=== PATIENT | female | born 1970 | race Caucasian/White ===

== ENCOUNTER 2023-10-09 12:45 | Outpatient (RCR) | payer BC, SELFPAY | END 2023-10-09 23:59 | disposition home or self-care (01) | LOC: PURB 12:45 | PROVIDERS: ATTENDING PHYSICIAN Internal Medicine Critical Care Medicine; FAMILY PHYSICIAN Family Medicine | DX: J44.9 Chronic obstructive pulmonary disease, unspecified (principal) | CPT/HCPCS: G0237 ==

== ENCOUNTER 2023-11-06 16:30 | Outpatient (RCR) | payer BC, SELFPAY | END 2023-11-06 23:59 | disposition home or self-care (01) | LOC: PURB 16:30 | PROVIDERS: ATTENDING PHYSICIAN Internal Medicine Critical Care Medicine; FAMILY PHYSICIAN Family Medicine | DX: J44.9 Chronic obstructive pulmonary disease, unspecified (principal) | CPT/HCPCS: 94625 ==

== ENCOUNTER 2023-11-22 16:30 | Outpatient (RCR) | payer BC, SELFPAY | END 2023-11-22 23:59 | disposition home or self-care (01) | LOC: PURB 16:30 | PROVIDERS: ATTENDING PHYSICIAN Internal Medicine Critical Care Medicine; FAMILY PHYSICIAN Family Medicine | DX: J44.9 Chronic obstructive pulmonary disease, unspecified (principal) | CPT/HCPCS: 94625 ==

== ENCOUNTER → 2023-12-24 06:54 | Outpatient (REF) | payer BC, SELFPAY | LOC: RAD 06:54 | PROVIDERS: ATTENDING PHYSICIAN Internal Medicine Critical Care Medicine; FAMILY PHYSICIAN Family Medicine | DX: J21.9 Acute bronchiolitis, unspecified (principal) | CPT/HCPCS: 71250 ==

== ENCOUNTER → 2023-12-28 06:41 | Outpatient (REF) | payer BC, SELFPAY | LOC: HWWDC 06:41 | PROVIDERS: ATTENDING PHYSICIAN Physician Assistant Medical | DX: Z12.31 Encounter for screening mammogram for malignant neoplasm of breast (principal) | CPT/HCPCS: 77063; 77067 ==

== ENCOUNTER 2024-03-28 08:51 | Inpatient (IN) | payer BC, SELFPAY ==
[2024-03-27] VITALS (10 sets, daily range): BP systolic 109–132; BP diastolic 62–84; BMI 23.2; BMI 23.3
--- NOTE | 2024-03-27 01:57 | ED.GENMED ---
History of Present Illness
General
Chief Complaint: Breathing Problem
Time Seen by Provider: 03/27/24 01:57
History of Present Illness
History of Present Illness:
HPI: Patient presents due to shortness of breath and was concerned because of low sats on room air. SOB onset 3d ago. Cannot sleep. Some pleuritic low/mid back pain on the right side. (+) nonproductive cough. She has never had blood clots in
her lung. Currently at rest, she does not have any shortness of breath and did have breathing treatment earlier approximately 2 and half hours ago.
EXAM:
GENERAL: Well appearing in no distress
HEENT: Moist oral mucosa
CARDIOVASCULAR: No murmurs, tachycardic heart rate, regular rhythm, No chest wall tenderness
PULMONARY: No respiratory distress, breath sounds are somewhat decreased with some rales at the bases which are faint
ABDOMEN: Soft with no peritoneal signs, no tenderness
NEUROLOGIC: Excellent strength all extremities, no coordination deficits
PSYCHIATRIC: Appropriate mental status, normal insight and judgement
EXTREMITIES: Nontender, no edema, moves all extremities equally
SKIN: No rash, no lesions
TIME OF INITIAL ENCOUNTER: 2 AM
NUMBER AND COMPLEXITY OF PROBLEMS ADDRESSED AT THE ENCOUNTER
� Chronic conditions affecting care: Asthma, COPD, former smoker, has had pneumonia, has had COVID in 2022
� Acute Exacerbation and/or Progression of Chronic Illness: This is an acute problem
� Differential Diagnosis includes: Viral syndrome, COPD exacerbation, asthma exacerbation, PE, pneumonia
AMOUNT AND/OR COMPLEXITY OF DATA TO BE REVIEWED AND ANALYZED
� I performed an independent evaluation of and my interpretation is:
EKG: Sinus 106, rightward axis deviation, nonspecific ST abnormality
CT:
X-rays: Chest x-ray shows no definite opacification
Laboratory Studies: White count 17.6, troponin and BNP unremarkable, COVID flu negative, D-dimer 0.31
Other:
� Review of other/old records: The patient was admitted earlier this year with COPD exacerbation
� Clinical information was obtained by an independent historian: None needed
� Prescriptions/Medications Considered but not given: Consider DuoNebs over the patient currently denies any shortness of breath at rest
� Further testing considered but not performed:
RISK OF COMPLICATIONS AND/OR MORBIDITY OR MORTALITY OF PATIENT MANAGEMENT
� Social determinants of health affecting care: Lives at home
� Discussion with other providers: Dr. Mccurdy for admission at 4:05 AM
� Escalation of care including admission/observation vs risk of discharge considered: The patient states she has both COPD and asthma. Leukocytosis is noted but she has not been on any steroids recently. She currently does not
have any shortness of breath at rest. Will try IV steroids. The nurse tells me that as the patient walked in the emergency department she became short of breath and sats were down to 83% with good waveform. Her D-dimer is reassuring.
Past History
Past History
ED Past Medical History: Asthma
ED Past Surgical History: Negative Cholecystectomy
Social History
Tobacco: Smoker
Alcohol: Occasional
Drug: None
Personal:
Living: with family
Family History
Family History: Other (non contributory)
Phy Exam
Physical Exam
Physical Exam:
See HPI
Scores
Heart Failure Risk
Heart Failure Risk Score: Not Applicable
Course
Orders/Labs/Results
Orders:
Orders
03/27/24 01:52
CXR2 [CR Chest - 2 Views ] Urgent
Comment:
Reason For Exam: cough and shortness of breath.
03/27/24 02:34
Electrocardiogram (*1) Urgent
Reason for Study: Shortness of Breath
EKG- Treatment ONCE
Test Result ONCE
03/27/24 02:37
MethylPREDNISolone PF [Solu-Medrol Pf] 125 mg IV NOW STA
03/27/24 02:53
Basic Metabolic Panel Urgent
Complete Blood Count/With Diff Urgent
D-Dimer Urgent
HCG, Serum Qualitative Screen Urgent
Magnesium Urgent
NT-proBNP Urgent
Troponin I Urgent
03/27/24 03:07
0.9% Sodium Chloride 1000 ml [Nss] 1,000 ml IV BOLUS
03/27/24 03:36
COVID-19 Antigen Urgent
Source: Nasal Swab
Influenza A+B Rapid Molecular Urgent
MADHAV Source: Nasal Swab
Specimen Description:
03/27/24 03:53
Ipratropium/Albuterol Sulfate [Duoneb] 3 ml INH R NOW ONE
03/27/24 04:28
Admit/Transfer Patient As Directed
Co-Sign Provider:
Level of Care: Observation services
Assign to:: Telemetry
Physician / Group: Kaz
Diagnosis: RAMACHANDRAN
Reason for Telemetry: Arrhythmia
Date to Stop Telemetry: 03/30/24
Time to Stop Telemetry: 11:00
PRN Pain Medication Management As Directed
May give lesser potent ordered pain med per pt: Yes
preference::
Protocol:: Medication orders for pain may be administered in a
manner that supports deferring to patient preference
when the pt is:
- Requesting an ordered lesser potent pain medication.
Least to most potent pain medications are defined
as: acetaminophen < NSAID < tramadol < opioids
(morphine, oxycodone, hydromorphone).
- Requesting a lesser dose of the same medication IF
ORDERED.
- Requesting a less intrusive route of administration
if both routes are prescribed by the provider (PO <
IV).
03/27/24 04:30
Code Status As Directed
Resuscitation Status: Full Code
03/27/24 05:00
Flush (0.9% Sodium Chloride) [Flush (Nss)] See Dose Instructions IV PER PROTOCOL
03/27/24 05:23
Acetaminophen [Tylenol] 650 mg PO Q4HPRN PRN
Albuterol Nebs [Ventolin Nebules] 2.5 mg INH R Q4HPRN PRN
03/27/24 05:23
Activity As Directed
Activity Level: Ambulate
EKG with chest pain [ECG as needed] As Directed
ECG as needed for:: Chest Pain
I/O [Intake/ Output] As Directed
Frequency: Per unit guidelines
Vital Signs As Directed
Frequency: Per unit guidelines
Weight As Directed
Frequency: Daily
Oxygen Therapy [O2 Therapy] [RESP] Routine
Titrate/Wean O2 to maintain O2 sat greater than (%): 94
DX Deep Vein Thrombosis Video Routine
03/27/24 Breakfast
Regular
Basic Metabolic Panel IN AM
Complete Blood Count/No Diff IN AM
03/27/24 08:00
Aspirin Low Dose EC [Aspir Low (Enteric Coated)] 81 mg PO DAILY
Budesonide [Pulmicort] 0.5 mg INH R BID
Ipratropium/Albuterol Sulfate [Duoneb] 3 ml INH R QID
Prednisone [Deltasone] 40 mg PO DAILY
03/27/24 18:00
Enoxaparin Sodium [Lovenox] 40 mg SC QPM
03/30/24 11:00
DC Protocol for Telemetry ONCE
Abnormal Lab Results
03/27/24
02:53
WBC 17.6 H 10^3/uL
(4.8-10.8)
Plt Count 437 H 10^3/uL
(130-400)
Abs Immat Gran (auto) 0.1 H 10^3/uL
(0-0.05)
Absolute Neuts (auto) 13.8 H 10^3/uL
(1.4-6.5)
Absolute Monos (auto) 1.0 H 10^3/uL
(0.1-0.6)
Immature Gran % 0.8 H %
(0-0.5)
Neutrophils % 78.2 H %
(42.2-75.2)
Lymphocytes % 11.2 L %
(20.5-51.1)
Glucose 124 H mg/dl
(70-99)
Calcium 10.4 H mg/dl
(8.4-10.2)
03/27/24 02:53
03/27/24 02:53
Vital Signs
Initial and Last Documented VS:
Initial Vital Signs
Temp Pulse Resp BP Pulse Ox
99.6 F 130 20 132/77 93
03/27/24 01:45 03/27/24 01:45 03/27/24 01:45 03/27/24 01:45 03/27/24 01:45
Last Documented Vital Signs
Temp Pulse Resp BP Pulse Ox
99.6 F 111 16 114/66 93
03/27/24 01:45 03/27/24 05:00 03/27/24 05:00 03/27/24 05:00 03/27/24 04:15
*Critical Care Note
Total Time (30-74mins, 75-104mins- exclusive of procedures): Not Applicable
ED Attending Note
-
Portions of this chart may have been created with voice recognition software.� Occasional wrong word or��sound alike� substitutions may have occurred due to the inherent limitations of voice recognition software.
Discharge Plan
Departure
Patient Disposition: Admit
Date of Disposition: 03/27/24
Time of Disposition: 04:05
Presentation/result/management discussed w/ accepting MD/DO: Hospitalist
Discharge Problem:
COPD with acute exacerbation
Interventions
Interventions:
*Risk Screen - Suicide Last Done: 03/27/24 01:45
*General Assessment Last Done: 03/27/24 01:45
*Neglect/Abuse Screening Last Done: 03/27/24 01:45
ED- Fall Risk Assessment Last Done: 03/27/24 01:45
*ED COVID-19 Vaccine History Last Done: 03/27/24 01:45
ED- Cardiac Assessment Last Done: 03/27/24 03:18
ED- Pulmonary Assessment Last Done: 03/27/24 03:18
[2024-03-27] MEDS: SOLU-MEDROL PF 125 MG IV (03:01)
[2024-03-27 03:05] LABS: % Basophils 0.5 % (0-2); % Eosinophils 3.9 % (0-6); % Immature Granulocytes 0.8 % (0-0.5); % Lymphocytes 11.2 % (20.5-51.1); % Monocytes 5.4 % (1.7-9.3); % Neutrophils 78.2 % (42.2-75.2); Absolute Basophils 0.1 10^3/uL (0-0.2); Absolute Eosinophils 0.7 10^3/uL (0-0.7); Absolute Immature Granulocytes 0.1 10^3/uL (0-0.05); Absolute Neutrophils 13.8 10^3/uL (1.4-6.5); Hematocrit 39.3 % (37.0-47.0); Hemoglobin 13.8 g/dL (12.0-16.0); Mean Corp Hgb Conc. 35.1 g/dL (33.0-37.0); Mean Corpuscular Hgb 29.4 pg (27.0-31.0); Mean Corpuscular Volume 83.6 fL (81.0-99.0); Nucleated Red Blood Cells % 0 %; Platelet Count 437 10^3/uL (130-400); Red Cell Dist. Width 14.3 % (11.5-14.5); White Blood Cell Count 17.6 10^3/uL (4.8-10.8)
[2024-03-27 03:20] LABS: HCG, Serum Qualitative Screen Negative
[2024-03-27 03:23] LABS: Blood Urea Nitrogen 15 mg/dl (7-17); Calcium 10.4 mg/dl (8.4-10.2); Carbon Dioxide 28 mmol/L (22-30); Chloride 99 mmol/L (98-107); Estimated Creatinine Clearance 87 ml/min; Glucose 124 mg/dl (70-99); Potassium 3.8 mmol/L (3.5-5.1); Sodium 140 mmol/L (135-145); eGFR > 60.00
[2024-03-27] MEDS: NSS 1000 IV (03:27)
[2024-03-27 03:44] LABS: D-Dimer 0.31 ug/mlFEU (0.00-0.50)
[2024-03-27 03:57] LABS: COVID-19 Antigen Negative (Negative)
[2024-03-27 03:59] LABS: NT-proBNP 155 pg/ml; Troponin I < 0.012 ng/ml
[2024-03-27] MEDS: DUONEB 3 ML INH ×3 (04:00→11:06)
--- NOTE | 2024-03-27 04:34 | HPS.HSE ---
Family Physician
-
Family Physician:
Chief Complaint
-
SOB
History of Present Illness
Patient is a 53y F with PMH significant for COPD who presents to ED complaining of SOB. Patient states that she has been feeling more SOB since Sunday. She reports dyspnea that occurs with mild exertion and has persisted since that time. She
notes some discomfort in the R flank area as well - worse with deep breathing, coughing, etc. She has a mild , non-productive cough. No fevers or chills. No chest pain or palpitations.
Patient notes that she was hospitalized in February for RLL pneumonia and pleurisy. This was in [place], [place] while she was on vacation. She was discharged on abx and steroids which she completed on 03/04/24.
She had been feeling well since that time - until development of new symptoms on Sunday.
Medical History
Past Medical History
Past Medical History: Reports Other
Additional Past Medical History:
COPD
Anxiety / Depression
Past Surgical History: Reports Other
Additional Past Surgical History:
Cholecystectomy
D&E
Social History
Tobacco: Former Smoker (Patient quit smoking 1 month ago. > 30 pack years total use.)
Alcohol: None
Drug: None
Family History
Family History: Other (Mother: HTN Father: Bladder Cancer GM: Breast Cancer)
Allergies / Home Medications
Allergies reflects when Allergies were last updated in [employer].
Home Medications with original date entered in [employer]
Allergy/Medication List:
Allergies
Allergy/AdvReac Type Severity Reaction Status Date / Time
dextrose Allergy Unknown Verified 03/27/24 01:45
nirmatrelvir [From Paxlovid] Allergy Rash Verified 03/27/24 01:45
ritonavir [From Paxlovid] Allergy Rash Verified 03/27/24 01:45
theophylline Allergy Unknown Verified 03/27/24 01:45
Home Medications
albuterol sulfate 90 mcg/actuation aerosol inhaler 1 puff inhalation Q6H PRN shortness of breath or wheezing #8.5 grams 07/21/23
chlorthalidone 25 mg tablet 25 mg PO DAILY #30 tabs 07/21/23
ipratropium 0.5 mg-albuterol 3 mg (2.5 mg base)/3 mL nebulization soln 3 ml inhalation Q4H PRN SOB #90 mL 07/21/23
aspirin 81 mg tablet,delayed release 81 mg PO DAILY 03/27/24
budesonide 160 mcg-glycopyr 9 mcg-formot 4.8 mcg/actuation HFA inhaler ([employer]) 2 inh inhalation BID 03/27/24
Review of Systems
-
History Source: Patient
A 12 point ROS was completed and negative except as noted: Yes
Constitutional: Reports Fatigue; Denies Fever or Chills
EENT: Denies Sore Throat
Respiratory: Reports Cough and Trouble Breathing; Denies Hemoptysis
Cardiac: Denies Chest Pain or Palpitations
Abdomen/GI: Denies Abdominal Pain, Nausea, Vomiting or Diarrhea
: Reports Flank Pain; Denies Dysuria or Frequency
Musculoskeletal: Denies Edema
Neurological: Denies Dizzy or Headache
Psych: Denies Depression or Anxiety
Physical Exam
Vital Signs
Vital Signs
Temp Pulse Resp BP Pulse Ox
99.6 F 109 20 110/71 92
03/27/24 01:45 03/27/24 03:45 03/27/24 03:45 03/27/24 03:00 03/27/24 03:45
Physical Exam
General: Other (53y F in no acute distress.)
HEENT: Moist mucous membranes, PERRLA and Other (Thick neck, rounded facies.)
Respiratory: Clear; No Wheezes, Rales or Rhonchi
Cardiac: S1/S2 and Regular Rhythm; No Murmur
GI: Soft, Non Tender, Non Distended and Normal Bowel Sounds
Musculoskeletal: No Clubbing and No Edema
Neuro: AO x 3
Laboratory Results
-
03/27/24 02:53
03/27/24 02:53
Laboratory Results
Troponin I < 0.012 ng/ml 03/27/24 02:53
Impression/Plan
-
A/P: Patient is a 53y F with PMH significant for COPD who presents to ED complaining of RAMACHANDRAN x 3 days.
RAMACHANDRAN
COPD without Acute Exacerbation
Pleurisy
- Observe for further evaluation and treatment.
- Patient is comfortable appearing. Lungs and CXR are clear at present. Oxygen adequate at rest, but decreases into high 80s with ambulation.
- Will change IV steroids to prednisone 40mg daily and taper.
- Hopefully steroids will also improve reported pleuritic pain.
- Nebs ATC and PRN.
- Follow for clinical improvement.
DVT Prophylaxis: Lovenox
Code Status: Full
[2024-03-27 06:50] LABS: Hematocrit 38.7 % (37.0-47.0); Hemoglobin 13.4 g/dL (12.0-16.0); Mean Corp Hgb Conc. 34.6 g/dL (33.0-37.0); Mean Corpuscular Hgb 29.9 pg (27.0-31.0); Mean Corpuscular Volume 86.4 fL (81.0-99.0); Mean Platelet Volume 9.2 fL (7.4-10.4); Platelet Count 416 10^3/uL (130-400); Red Blood Cell Count 4.48 10^6/uL (4.20-5.40); Red Cell Dist. Width 14.4 % (11.5-14.5); White Blood Cell Count 16.8 10^3/uL (4.8-10.8)
[2024-03-27 07:09] LABS: Blood Urea Nitrogen 15 mg/dl (7-17); Calcium 9.6 mg/dl (8.4-10.2); Carbon Dioxide 26 mmol/L (22-30); Chloride 102 mmol/L (98-107); Estimated Creatinine Clearance 87 ml/min; Glucose 204 mg/dl (70-99); Potassium 3.5 mmol/L (3.5-5.1); Sodium 139 mmol/L (135-145); eGFR > 60.00
[2024-03-27] MEDS: PULMICORT 0.5 MG INH ×2 (07:49→19:56)
[2024-03-27] MEDS: ASPIR LOW (ENTERIC COATED) 81 MG PO (08:13)
[2024-03-27] MEDS: DELTASONE 40 MG PO (08:13)
[2024-03-27] MEDS: TYLENOL 650 MG PO (08:13)
[2024-03-27] MEDS: Hygroton 25 MG PO (11:24)
--- NOTE | 2024-03-27 12:50 | W.PN.HOSP.TC ---
Today's Communication/Plan
-
Steroid taper
Wean O2
Assessment / Plan
Assessment / Plan
Physical Exam
General: Other (53y F in no acute distress.)
HEENT: Moist mucous membranes, PERRLA and Other (Thick neck)
Respiratory: Clear; No Wheezes, Rales or Rhonchi
Cardiac: S1/S2 and Regular Rhythm; No Murmur
GI: Soft, Non Tender, Non Distended and Normal Bowel Sounds
Musculoskeletal: No Clubbing and No Edema
Neuro: AO x 3
A/P: Patient is a 53y F with PMH significant for COPD who presents to ED complaining of RAMACHANDRAN x 3 days.
RAMACHANDRAN
COPD without Acute Exacerbation
Hypoxia
Pleurisy
- weaning to 1L today; wean as tolerated; Goal O2 >90%
- Hold on abx at this time, no evidence of bacterial infection
-Attempt O2 with ambulation within 24 hours as drops down to 80s within last 24 hours;
- prednisone 40mg daily and taper.
- Nebs ATC and PRN.
- Follow for clinical improvement.
-Should f/u with pulm outpatient
# Leukocytosis
� Most likely secondary to steroids
�continue to monitor fever curve, white count
DVT Prophylaxis: Lovenox
Code Status: Full
Anticipated Discharge: 24 - 48 hours
Subjective/Interval History
-
Date of Service: March 27, 2024
Symptoms have improved, will weaning to 1 L
Objective Data
-
Labs:
Laboratory Results
03/27/24 03/27/24
02:53 06:18
WBC 17.6 H 16.8 H
Hgb 13.8 13.4
Hct 39.3 38.7
Plt Count 437 H 416 H
Sodium 140 139
Potassium 3.8 3.5
Chloride 99 102
Carbon Dioxide 28 26
BUN 15 15
Creatinine 0.6 0.6
Glucose 124 H 204 H
Calcium 10.4 H 9.6
Vital Signs:
Vital Signs
Temp Pulse Resp BP Pulse Ox
97.8 F 106 18 111/76 94
03/27/24 11:36 03/27/24 11:36 03/27/24 11:36 03/27/24 11:36 03/27/24 11:36
Review of Systems
-
History Source: Patient
All other systems: Not reviewed unless documented
Data Reviewed
-
Total Time Spent with Patient (in minutes): 47
Labs: Labs Reviewed by me
--- NOTE | 2024-03-27 15:33 | CM ---
Addendum entered by PA Norman 03/28/24 09:05:
Late entry note-spoke with attending who stated that patient has been hypoxic and therefore will make her inpatient. RN spoke with patient. CM came to floor with director to clarify that patient ok with plan. Spoke with RN, Rosemary, who stated that she
spoke with patient who is still not feeling well and therefore was eager to stay. She is comfortable staying as long as she has officially been admitted.
Original Note:
Reviewed chart, met with patient to obtain information for assessment. Patient stated that she lives in a two story single home with her son, best friend and her spouse. She has 14 steps to enter. She denied any difficulty when she feeling well
having difficulty with steps. She described herself as independent with her ADLs, personal care, dressing, bathing and ambulation. 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 She can drive and can get herself to her appointments and
do all of her own shopping.
She did have o2 at home but gave it back as she stated that she no longer needed it. She also has a nebulizer. Patient currently on o2, 1 liter.
Patient has not had VN in the past. She has never been to a SNF.
Patient has a prescription plan and uses, [facility] in [place] for all of her medications.
Patient's PCP is, Romie Vela.
Reviewed Obs letter with patient. She stated that she does not want to sign Obs form and if she is in acute care under Observation status she wants to leave as she was under the impression that she was being admitted.
Messaged [facility] RN, Clementine, who stated that patient is not meeting inpatient criteria.
Will update patient.
Will put unsigned OBS letter in chart.
Plan: Case management will continue to follow and assist with discharge planning. Home.
[2024-03-27] MEDS: DUONEB INH (16:08)
[2024-03-27] MEDS: LOVENOX 40 MG SC (17:34)
[2024-03-27] MEDS: XOPENEX 1.25 MG INHALANT SOLUTION INH (19:57)
[2024-03-28 03:48] VITALS: BP 111/71
[2024-03-28] MEDS: XOPENEX 1.25 MG INHALANT SOLUTION INH ×2 (05:11→13:00)
[2024-03-28] MEDS: PULMICORT 0.5 MG INH (05:11)
[2024-03-28 06:00] VITALS: BMI 23.5
[2024-03-28 06:42] LABS: Hematocrit 37.3 % (37.0-47.0); Mean Corp Hgb Conc. 34.9 g/dL (33.0-37.0); Mean Corpuscular Hgb 29.2 pg (27.0-31.0); Mean Corpuscular Volume 83.8 fL (81.0-99.0); Mean Platelet Volume 9.2 fL (7.4-10.4); Platelet Count 456 10^3/uL (130-400); Red Blood Cell Count 4.45 10^6/uL (4.20-5.40); Red Cell Dist. Width 14.1 % (11.5-14.5); White Blood Cell Count 19.6 10^3/uL (4.8-10.8)
[2024-03-28 07:03] LABS: Blood Urea Nitrogen 17 mg/dl (7-17); Calcium 10.2 mg/dl (8.4-10.2); Carbon Dioxide 27 mmol/L (22-30); Chloride 102 mmol/L (98-107); Estimated Creatinine Clearance 87 ml/min; Glucose 107 mg/dl (70-99); Potassium 3.4 mmol/L (3.5-5.1); Sodium 142 mmol/L (135-145); eGFR > 60.00
[2024-03-28 07:26] VITALS: BP 105/66
[2024-03-28] MEDS: DELTASONE 40 MG PO (10:05)
[2024-03-28] MEDS: ASPIR LOW (ENTERIC COATED) 81 MG PO (10:05)
[2024-03-28] MEDS: Hygroton 25 MG PO (10:06)
--- NOTE | 2024-03-28 10:32 | CM ---
Received notification from Clementine in [facility] that patient is now IP. Patient is aware.
Plan: Case management will continue to follow and assist with discharge planning. Home when stable.
--- NOTE | 2024-03-28 11:33 | W.PN.HOSP.TC ---
Addendum entered and electronically signed by Frederick Dc MD 03/28/24 15:12:
[id number]
Original Note:
Today's Communication/Plan
-
prednisone taper
kcl repletion
monitor cbc, bmp outpatient
Assessment / Plan
Assessment / Plan
Physical Exam
General: Other (53y F in no acute distress.)
HEENT: Moist mucous membranes, PERRLA and Other (Thick neck)
Respiratory: Clear; No Wheezes, Rales or Rhonchi
Cardiac: S1/S2 and Regular Rhythm; No Murmur
GI: Soft, Non Tender, Non Distended and Normal Bowel Sounds
Musculoskeletal: No Clubbing and No Edema
Neuro: AO x 3
A/P: Patient is a 53y F with PMH significant for COPD who presents to ED complaining of RAMACHANDRAN x 3 days.
RAMACHANDRAN
COPD without Acute Exacerbation
Hypoxia
Pleurisy
� Improved
- Weaned off oxygen, O2 down to 91% upon ambulation on RA, going back to 94% without difficulty
- Hold on abx at this time, no evidence of bacterial infection
- Prednisone taper upon discharge
- Continue home inhalers upon discharge
-Should f/u with pulm outpatient
# Leukocytosis
� Most likely secondary to steroids
�continue to monitor fever curve, white count
-CBC outpatient
#Hypokalemia
-monitor and replete
-bmp outpatient
DVT Prophylaxis: Lovenox
Code Status: Full
More than 30 minutes spent in discharge including
Final examination of the patient
Summarizing hospital stay
Instructions for continuing care to all relevant caregivers
Preparation of discharge records, prescriptions, and referral forms
Total time spent (35 in minutes):
Anticipated Discharge: Today
Subjective/Interval History
-
Date of Service: March 28, 2024
No acute events overnight, weaned off oxygen, tolerating saturations on room air upon ambulation
Objective Data
-
Labs:
Laboratory Results
03/28/24
06:12
WBC 19.6 H
Hgb 13.0
Hct 37.3
Plt Count 456 H
Sodium 142
Potassium 3.4 L
Chloride 102
Carbon Dioxide 27
BUN 17
Creatinine 0.6
Glucose 107 H
Calcium 10.2
Vital Signs:
Vital Signs
Temp Pulse Resp BP Pulse Ox
98.2 F 91 17 105/66 94
03/28/24 07:26 03/28/24 07:26 03/28/24 07:26 03/28/24 07:26 03/28/24 07:26
I&O
03/27/24 03/28/24 03/29/24
06:59 06:59 06:59
Intake Total 240 / 240
Balance 240 / 240
Review of Systems
-
History Source: Patient
All other systems: Not reviewed unless documented
Physical Exam
-
General: No Apparent Distress
HEENT: Normocephalic and Atraumatic
Respiratory: Negative Wheezes
Cardiac: Regular Rhythm
GI: Soft
Genito-urinary: No Costovertebral Tender
Neuro: AO x 3
Psych: Calm
Data Reviewed
-
Total Time Spent with Patient (in minutes): 47
Diagnostic Radiology: Image personally visualized and interpreted and Report Reviewed by me
Labs: Labs Reviewed by me
--- NOTE | 2024-03-28 11:35 | W.DS.TRANS ---
DC Summary - Comic Illustrator
-
Discharge Instructions:
Discharge Diagnosis/Procedures RAMACHANDRAN
COPD without Acute Exacerbation
Hypoxia
Pleurisy
Activity As tolerated
Blood Work cbc and bmp in 3-5 days
Instructions:
Stand-Alone Forms:
Changes to Home Medications: Yes
Discharge Medications:
DC Medications w/original date entered in [employer]
albuterol sulfate 90 mcg/actuation aerosol inhaler 1 puff inhalation Q6H PRN shortness of breath or wheezing #8.5 grams 07/21/23
chlorthalidone 25 mg tablet 25 mg PO DAILY #30 tabs 07/21/23
ipratropium 0.5 mg-albuterol 3 mg (2.5 mg base)/3 mL nebulization soln 3 ml inhalation Q4H PRN SOB #90 mL 07/21/23
aspirin 81 mg tablet,delayed release 81 mg PO DAILY Blood Clot Prevention/Tx 03/27/24
budesonide 160 mcg-glycopyr 9 mcg-formot 4.8 mcg/actuation HFA inhaler ([employer]) 2 inh inhalation BID Lung/Breathing Issues 03/27/24
prednisone 10 mg tablet See Rx Instructions .Route .COMPLEX #45 tabs 03/28/24
Home Medication Changes
prednisone 10 mg tablet See Rx Instructions .Route .COMPLEX #45 tabs 03/28/24
Pending Results: No
[2024-03-28 11:41] VITALS: BP 114/71
[2024-03-28] MEDS: KCL ELIXIR 40 MEQ PO (12:47)
== END 2024-03-28 13:29 | disposition home or self-care (01) | DRG 192 ==
LOC: 3 WEST ACU 08:51
PROVIDERS: ADMITTING PHYSICIAN Hospitalist; ATTENDING PHYSICIAN Internal Medicine; EMERGENCY PHYSICIAN Emergency Medicine; FAMILY PHYSICIAN Family Medicine
DX: J44.9 Chronic obstructive pulmonary disease, unspecified (principal); R09.02 Hypoxemia; T38.0X5A Adverse effect of glucocorticoids and synthetic analogues, initial encounter; E87.6 Hypokalemia; Z11.52 Encounter for screening for COVID-19
CPT/HCPCS: 71046; 80048; 83735; 83880; 84484; 84703; 85025; 85027; 85379; 87502; 87811; 93005; 94640; 96361; 96374; 99285

== ENCOUNTER 2024-05-21 13:40 | Inpatient (IN) | payer BC, SELFPAY ==
[2024-05-21] VITALS (7 sets, daily range): BP systolic 105–128; BP diastolic 58–85; BMI 23.3; BMI 23.9
--- NOTE | 2024-05-21 09:21 | ED.GENMED ---
History of Present Illness
General
Chief Complaint: Breathing Problem
Source: patient
Exam Limitations: none
Time Seen by Provider: 05/21/24 09:21
Nursing documentation reviewed up to this point in time: agreed with
History of Present Illness
History of Present Illness:
Patient with history of asthma/COPD, who smokes daily, presents to ED secondary to worsening shortness of breath with exertion, associated with chest tightness this morning, 911 was dispatched to patient's residence. Patient was found to be in
moderate respiratory distress. Patient was given IV Decadron along with nebulizer treatment en route to the hospital, with significant improvement symptoms. Denies fever or chills. Patient states that for the past 10 days, patient has been
experiencing shortness of breath with chronic cough. Patient was seen at urgent care center 1 week ago, where she was started on antibiotics along with steroids, without improvement symptoms. Denies fever or chills. Denies nausea, vomiting, or
diarrhea. Denies back pain. Denies recent travel or surgery. Denies leg pain or swelling. Patient has been admitted to the hospital on multiple occasions for COPD/asthma exacerbation. However, patient states that she typically does not
experience chest tightness, to the extent that she felt this morning. Patient does not have history of heart disease nor family history of heart disease.
Past History
Past History
ED Past Medical History: Asthma
ED Past Surgical History: Negative Cholecystectomy
Social History
Tobacco: Smoker
Alcohol: Occasional
Drug: None
Personal:
Living: with family
Family History
Family History: Other (non contributory)
Review of Systems
Review of Systems
Allergies reviewed?: Yes
All Other Systems: ROS reviewed and negative except as documented in HPI and ROS
Constitutional: Reports no symptoms
EENT: Reports no symptoms
Respiratory: Reports no symptoms
Cardiac: Reports no symptoms
ABD/GI: Reports no symptoms
Musculoskeletal: Reports no symptoms
Skin: Reports no symptoms
Neurological: Reports no symptoms
Phy Exam
Physical Exam
Physical Exam:
Physical Exam
General: mild respiratory distress, not acutely ill
Neck: supple. no meningeal signs. normal posterior pharynx
Heart: s1/s2 regular rate and rhythm, no murmur. equal radial pulses.
Lungs: mild respiratory distress. diminished breath sounds bilaterally
Abdomen: normal bowel sounds. not tender.
Neuro: alert and oriented. no focal neurological deficits
Skin: no rash
Psychiatric: well kept. interactive and cooperative
Extremities: no edema. no calf tenderness.
Scores
Heart Failure Risk
Heart Failure Risk Score: Not Applicable
Course
Orders/Labs/Results
Orders:
Orders
05/21/24 09:29
CXR2 [CR Chest - 2 Views ] Urgent
Comment:
Reason For Exam: sob, copd hx
05/21/24 09:31
Basic Metabolic Panel Urgent
Complete Blood Count/With Diff Urgent
05/21/24 09:58
Add On- LAB Urgent
Tests Added?: PRO-BNP
05/21/24 10:09
Ketorolac [Toradol] 15 mg IV NOW STA
05/21/24 10:45
NT-proBNP Urgent
Potassium Urgent
Troponin I Urgent
05/21/24 11:08
D-Dimer Urgent
05/21/24 11:47
Acetaminophen [Tylenol] 650 mg PO NOW STA
05/21/24 11:48
Ipratropium/Albuterol Sulfate [Duoneb] 3 ml INH R NOW STA
05/21/24 12:08
COVID-19 Antigen Urgent
Source: Nasal Swab
05/21/24 12:43
Admit/Transfer Patient As Directed
Co-Sign Provider:
Level of Care: Inpatient admission
Assign to:: Telemetry
Physician / Group: Juan Luis
Diagnosis: Acute COPD Exacerbation
Reason for Telemetry: Arrhythmia
Date to Stop Telemetry: 05/24/24
Time to Stop Telemetry: 11:00
Reason for Hospitalization: IV steroids, nebs, pulm consult
Expected length of stay greater than two midnights?: Yes
ELOS- Estimated Length of Stay in days: 3
I certify the patient meets the requirements for IP care: Yes
05/21/24 12:44
PRN Pain Medication Management As Directed
May give lesser potent ordered pain med per pt: Yes
preference::
Protocol:: Medication orders for pain may be administered in a
manner that supports deferring to patient preference
when the pt is:
- Requesting an ordered lesser potent pain medication.
Least to most potent pain medications are defined
as: acetaminophen < NSAID < tramadol < opioids
(morphine, oxycodone, hydromorphone).
- Requesting a lesser dose of the same medication IF
ORDERED.
- Requesting a less intrusive route of administration
if both routes are prescribed by the provider (PO <
IV).
05/21/24 12:45
Code Status As Directed
Resuscitation Status: Full Code
05/21/24 13:34
Morphine Sulfate 2 mg IV NOW STA
05/21/24 14:27
Ipratropium/Albuterol Sulfate [Duoneb] 3 ml INH R Q4HPRN PRN
Nicotine Polacrilex [Nicorette] 2 mg PO Q2HPRN PRN
05/21/24 14:27
PULMONARY CONSULT Routine
Consulting Provider: Osito Waters
Was physician already notified: Yes
Activity As Directed
Activity Level: Out of Bed-Early Mobility
Intake/ Output As Directed
Frequency: Per unit guidelines
Vital Signs As Directed
Frequency: Per unit guidelines
Weight As Directed
Frequency: Daily
Copd Education [RESP] Routine
Pulse Ox/exercise [RESP] Routine
Quantity: 1
DX Deep Vein Thrombosis Video Routine
05/21/24 Dinner
Regular
At Your Request: Full Participation
Azithromycin [Zithromax] 500 mg PO Q24H
Dexamethasone Sod Phosphate [Decadron] 4 mg IV Q12H
05/21/24 16:00
Ipratropium/Albuterol Sulfate [Duoneb] 3 ml INH R QID
05/21/24 16:50
Acetaminophen [Tylenol] 650 mg PO Q4HPRN PRN
05/21/24 18:00
Enoxaparin Sodium [Lovenox] 40 mg SC QPM
05/21/24 20:00
Budesonide [Pulmicort] 0.5 mg INH R BID
Guaifenesin [Mucinex] 600 mg PO Q12
05/22/24 07:01
Basic Metabolic Panel IN AM
05/22/24 08:00
Aspirin Low Dose EC [Aspir Low (Enteric Coated)] 81 mg PO DAILY
Chlorthalidone [Hygroton] 25 mg PO DAILY
Rosuvastatin Calcium [Crestor] 10 mg PO DAILY
05/24/24 11:00
DC Protocol for Telemetry ONCE
Abnormal Lab Results
05/21/24
09:31
WBC 19.7 H 10^3/uL
(4.8-10.8)
RDW 15.3 H %
(11.5-14.5)
Plt Count 414 H 10^3/uL
(130-400)
Abs Immat Gran (auto) 0.1 H 10^3/uL
(0-0.05)
Absolute Neuts (auto) 16.5 H 10^3/uL
(1.4-6.5)
Immature Gran % 0.6 H %
(0-0.5)
Neutrophils % 83.7 H %
(42.2-75.2)
Lymphocytes % 11.3 L %
(20.5-51.1)
Carbon Dioxide 31 H mmol/L
(22-30)
Glucose 128 H mg/dl
(70-99)
05/21/24 09:31
05/21/24 10:45
Vital Signs
Initial and Last Documented VS:
Initial Vital Signs
Pulse Ox
96
05/21/24 09:11
Last Documented Vital Signs
Temp Pulse Resp BP Pulse Ox
98.8 F 99 18 129/81 95
05/22/24 11:18 05/22/24 11:18 05/22/24 11:18 05/22/24 11:18 05/22/24 11:18
MDM/Problems Addressed
MDM/Problems Addressed:
Patient with mild respiratory distress with hypoxia noted (87% on room air) during short ambulation to restroom, improved upon returning. History and exam consistent with likely recurrent COPD exacerbation, not requiring further treatment along
with supplemental oxygen. D-dimer negative, with CTA earlier this year negative for PE, making PE diagnosis less likely. Patient's left-sided chest pain likely musculoskeletal, but will need to be monitored during hospitalization.
*Critical Care Note
Total Time (30-74mins, 75-104mins- exclusive of procedures): Not Applicable
ED Attending Note
-
Portions of this chart may have been created with voice recognition software.� Occasional wrong word or��sound alike� substitutions may have occurred due to the inherent limitations of voice recognition software.
Discharge Plan
Departure
Patient Disposition: Admit
Date of Disposition: 05/21/24
Time of Disposition: 11:55
Admit to: Telemetry
Presentation/result/management discussed w/ accepting MD/DO: Hospitalist
Discharge Problem:
COPD exacerbation
Interventions
Interventions:
*Risk Screen - Suicide Last Done: 05/21/24 14:30
*General Assessment Last Done: 05/21/24 09:16
*Neglect/Abuse Screening Last Done: 05/21/24 09:16
ED- Fall Risk Assessment Last Done: 05/21/24 14:13
*ED COVID-19 Vaccine History Last Done: 05/21/24 14:30
*Nursing Disposition Last Done: 05/21/24 14:13
ED- Cardiac Assessment Last Done: 05/21/24 09:28
ED- Pulmonary Assessment Last Done: 05/21/24 09:28
Discharge Date and Time
Discharge Date/Time: 05/21/24 14:15
[2024-05-21 09:41] LABS: % Basophils 0.3 % (0-2); % Eosinophils 1.2 % (0-6); % Immature Granulocytes 0.6 % (0-0.5); % Lymphocytes 11.3 % (20.5-51.1); % Monocytes 2.9 % (1.7-9.3); % Neutrophils 83.7 % (42.2-75.2); Absolute Basophils 0.1 10^3/uL (0-0.2); Absolute Eosinophils 0.2 10^3/uL (0-0.7); Absolute Immature Granulocytes 0.1 10^3/uL (0-0.05); Absolute Lymphocytes 2.2 10^3/uL (1.2-3.4); Absolute Monocytes 0.6 10^3/uL (0.1-0.6); Absolute Neutrophils 16.5 10^3/uL (1.4-6.5); Hematocrit 45.2 % (37.0-47.0); Hemoglobin 15.5 g/dL (12.0-16.0); Mean Corp Hgb Conc. 34.3 g/dL (33.0-37.0); Mean Corpuscular Hgb 29.6 pg (27.0-31.0); Mean Corpuscular Volume 86.4 fL (81.0-99.0); Mean Platelet Volume 9.3 fL (7.4-10.4); Nucleated Red Blood Cells % 0 %; Platelet Count 414 10^3/uL (130-400); Red Blood Cell Count 5.23 10^6/uL (4.20-5.40); Red Cell Dist. Width 15.3 % (11.5-14.5); White Blood Cell Count 19.7 10^3/uL (4.8-10.8)
[2024-05-21 09:59] LABS: Blood Urea Nitrogen 17 mg/dl (7-17); Calcium 10.1 mg/dl (8.4-10.2); Carbon Dioxide 31 mmol/L (22-30); Chloride 102 mmol/L (98-107); Estimated Creatinine Clearance 83 ml/min; Glucose 128 mg/dl (70-99); Sodium 140 mmol/L (135-145); eGFR > 60.00
[2024-05-21] MEDS: TORADOL 15 MG IV ×2 (10:13→20:19)
[2024-05-21 11:00] LABS: Potassium 3.7 mmol/L (3.5-5.1)
[2024-05-21 11:16] LABS: NT-proBNP 85.3 pg/ml; Troponin I < 0.012 ng/ml
[2024-05-21 11:33] LABS: D-Dimer 0.31 ug/mlFEU (0.00-0.50)
[2024-05-21] MEDS: TYLENOL 650 MG PO (11:57)
[2024-05-21] MEDS: DUONEB 3 ML INH ×3 (11:58→19:35)
--- NOTE | 2024-05-21 12:41 | HPS.HSE ---
Family Physician
-
Family Physician: Romie Vela
Chief Complaint
-
Shortness of Breath
History of Present Illness
Patient is a 53 y/o female past medical history of hypertension and COPD who presents with increased shortness of breath. Patient began with symptoms one week ago. She was seen at an urgent care last Sunday at which time she was prescribed a
Z-Ti and prednisone taper. Patient reports improvement while on the Zithromax, but notes that once completing the antibiotics symptoms, particularly left sided pleurisy, returned. Today she was walking into the kitchen and developed acute
shortness of breath associated with chest tightness. EMS was called and upon arrival found her oxygen level to be 87% on RA. Patient denies any fevers, sweats or chills. She reports mild cough that is non-productive. Other than the left sided
pleurisy she denies other chest pain.
Medical History
Past Medical History
Past Medical History: Reports Other
Additional Past Medical History:
COPD
Essential Hypertension
Hyperlipidemia
Past Surgical History: Reports Other
Additional Past Surgical History:
Cholecystectomy
D&E
Social History
Tobacco: Smoker (Patient reports smoking about 5 cigarettes per day)
Alcohol: None
Drug: None
Family History
Family History: Other (Mother: HTN Father: Bladder Cancer GM: Breast Cancer)
Allergies / Home Medications
Allergies reflects when Allergies were last updated in [employer].
Home Medications with original date entered in [employer]
Allergy/Medication List:
Allergies
Allergy/AdvReac Type Severity Reaction Status Date / Time
dextrose Allergy Unknown Verified 03/27/24 01:45
nirmatrelvir [From Paxlovid] Allergy Rash Verified 03/27/24 01:45
ritonavir [From Paxlovid] Allergy Rash Verified 03/27/24 01:45
theophylline Allergy Unknown Verified 03/27/24 01:45
Home Medications
ipratropium 0.5 mg-albuterol 3 mg (2.5 mg base)/3 mL nebulization soln 3 ml inhalation Q4H PRN SOB #90 mL 07/21/23
aspirin 81 mg tablet,delayed release 81 mg PO DAILY Blood Clot Prevention/Tx 03/27/24
budesonide 160 mcg-glycopyr 9 mcg-formot 4.8 mcg/actuation HFA inhaler ([employer]) 2 inh inhalation BID Lung/Breathing Issues 03/27/24
albuterol sulfate 2.5 mg/3 mL (0.083 %) solution for nebulization 2.5 mg inhalation TID Lung/Breathing Issues 05/21/24
albuterol sulfate 90 mcg/actuation aerosol inhaler 2 puff inhalation Q4HPRN PRN shortness of breath 05/21/24
chlorthalidone 25 mg tablet 25 mg PO DAILY Blood Pressure 05/21/24
prednisone 10 mg tablet See Rx Instructions .Route .COMPLEX 05/21/24 is day 6 of taper 05/21/24
rosuvastatin 10 mg tablet 10 mg PO DAILY High Cholesterol 05/21/24
Review of Systems
-
A 12 point ROS was completed and negative except as noted: Yes
Constitutional: Denies Fever or Chills
Respiratory: Reports See HPI
Cardiac: Denies Chest Pain or Palpitations
Physical Exam
Vital Signs
Vital Signs
Temp Pulse Resp BP Pulse Ox
98.1 F 104 29 120/81 93
05/21/24 09:13 05/21/24 12:00 05/21/24 12:00 05/21/24 10:00 05/21/24 12:00
Physical Exam
General: Comfortable and Conversant
HEENT: Anicteric and Moist mucous membranes
Respiratory: Non Labored Respirations and Other (Faint expiratory wheeze in left lower region, but overall clear with good air movement following Duonebs given by ED)
Cardiac: S1/S2 and Regular Rhythm
GI: Soft and Non Tender
Musculoskeletal: No Clubbing, No Cyanosis and No Edema
Skin: Warm and Dry
Neuro: Awake, Alert, Oriented and Nonfocal/grossly intact
Psych: Calm
Laboratory Results
-
05/21/24 09:31
05/21/24 10:45
Laboratory Results
Total Bilirubin Cancelled 05/21/24 09:31
AST Cancelled 05/21/24 09:31
ALT Cancelled 05/21/24 09:31
Alkaline Phosphatase Cancelled 05/21/24 09:31
Troponin I < 0.012 ng/ml 05/21/24 10:45
Data Reviewed
-
Diagnostic Radiology: Report Reviewed by me
Lab Data: Labs Reviewed by me
Old Records: Reviewed
Impression/Plan
-
Acute COPD Exacerbation, failed outpatient treatment
-Consult Pulmonary, patient known to Dr. Gordillo
-Continue Decadron 4mg IV q12
-Continue DuoNeb QID and PRN
-Continue Pulmicort Neb BID
-Resume Zithromax
-Monitor pulse ox - Check ambulatory pulse ox
Leukocytosis, likely related to steroids
-Trend WBC cell count
-Monitor for fevers
Essential Hypertension
-Continue chlorthalidone
Hyperlipidemia
-Continue Crestor
Tobacco Use Disorder / Nicotine Dependence
-Continue Nicorette gum per patient request
-Encourage smoking cessation
DVT proph: Lovenox
Code Status: Full Code
--- NOTE | 2024-05-21 12:50 | W.PN.UPDATE ---
Update Note
Progress Note Update
This is an addendum to the H&P written by Melinda Ramos on 05/21/2024. Patient seen and examined independently with PA.
53-year-old female past medical history of asthma/COPD, hypertension presenting with worsening shortness of breath with exertion associated chest tightness this morning. Patient has had shortness of breath for the past week with chronic cough. She
was at urgent care 1 week ago treated with antibiotic and steroids with improvement but worsening symptoms. Denies fevers or chills.
No wheezing on examination currently after DuoNeb. Chest x-ray unremarkable. Continue DuoNebs every 6 hours. Dexamethasone 4 every 12. Restarted azithromycin. Pulmonary consulted. She is an active smoker. Nicotine gum.
[2024-05-21 13:03] LABS: COVID-19 Antigen Negative (Negative)
[2024-05-21] MEDS: MORPHINE SULFATE 2 MG IV (13:39)
--- NOTE | 2024-05-21 14:44 | PTCARENOTE ---
pt presents from ED via stretcher. pt is AAO*3, Vss, room air. pt c/o chest pain received pain meds in ED prior to transferring pt to the room. pt is oriented to the room. call shepherd within the reach. plan of care ongoing.
--- NOTE | 2024-05-21 15:20 | CON.PUL ---
Consultation
Consultation Request
Date/Time Consultation Requested: 05/21/20241426
Date/Time Consultation Performed: 05/21/2024 - 1509
Requesting Provider: Melinda Ramos PA-C
Performing Provider: Osito Waters MD
Reason for Consultation: SOB/COPD exacerbation
Medical History
-
Chief Complaint: Worsening SOB
History of Present Illness:
53-year-old female active tobacco smoker with a past medical history of very severe COPD, depression, anxiety, history of right lung pneumonia and GERD who presents with worsening shortness of breath. She recently went to urgent care about 1 week
ago and diagnosed with bronchitis and COPD flare. She was started on steroids that did improve her symptoms but then on the morning prior to arrival her symptoms worsened. EMS administered her a nebulizer + Decadron and she did feel about 50%
better by the time she arrived here to the ER. Initially in the ER she was afebrile to 98.1 �F, pulse rate 104, breathing at 33 breaths/min, BP 128/85 and saturating 96% on room air. Initial labs showed leukocytosis to 19.7, Hb 15.5, platelet
count 414, absolute eosinophil count 200, elevated serum bicarbonate level 31, negative troponin at <0.012, proBNP WNL at 85.3, and COVID antigen negative. CXR showed no acute cardiopulmonary process. She was given Tylenol in the ER, Toradol,
morphine 2 mg + DuoNebs. She was admitted to telemetry under the hospitalist service, and pulmonary consulted for additional management/recommendations.
When I saw the patient, she was resting in bed in no acute distress on room air breathing comfortably. She says that she ate spicy food last week and coughed and then this developed left-sided flank/rib/abdominal pain which felt sharp and worsened
with deep breathing. She tried applying IcyHot, holding cold compresses which did not help. On the morning prior to arrival, she developed severe chest tightness and checked her oxygen saturation which was 84% on room air. She feels shortness of
breath with this chest tightness, and has a dry cough and otherwise her left flank hurts when she tries to cough harder. She normally brings up some phlegm with her cough. She currently feels better overall, although still having chest tightness
which is improved with the DuoNebs that were giving her. She currently denies HENLEY, nausea, vomiting, diarrhea, fevers or chills.
Of note, patient follows with us here at [facility] with Dr. Gordillo, last visit on 03/04/2024. She has a history of COPD, active tobacco smoking and hypoxia. Also history of right upper lobe pneumonia and was previously hospitalized in [place].
She was treated with Levaquin at the time. 6-minute walk test performed at that office visit showed no need for home O2. She has evidence of scattered tree-in-bud nodules in the left upper lobe and lingula, a tiny calcified granuloma in the right
upper lobe and small nodular groundglass opacities in the right middle lobe, lingula per CT chest in December 2023. Last full PFT performed in July 2023 showing very severe COPD with a positive bronchodilator response, and severe gas exchange
capacity defect (DLco: 26%, DLco/VA: 27%). She was told to follow-up with us in June 2024.
PMHx: COPD, depression, anxiety, history of right lung pneumonia, GERD
PSHx: Cholecystectomy, D&E (2000)
Past Medical History
Past Medical History: Other (Above as per HPI)
Past Surgical History: Other (Above as per HPI)
Social History
Tobacco: Smoker (0.25PPD with history of 1 PPD x 30 years)
Alcohol: None
Drug: None
Family History
Family History: Cancer (Father: Bladder cancer; Paternal + maternal grandmother: breast cancer) and Other (M: HCV; maternal grandmother: Alzheimer's dementia)
Allergies / Home Medications
Allergies
Allergy/AdvReac Type Severity Reaction Status Date / Time
dextrose Allergy Unknown Verified 03/27/24 01:45
nirmatrelvir [From Paxlovid] Allergy Rash Verified 03/27/24 01:45
ritonavir [From Paxlovid] Allergy Rash Verified 03/27/24 01:45
theophylline Allergy Unknown Verified 03/27/24 01:45
Home Medications
�Medication �Instructions �Recorded �Confirmed �Last Taken �Type
ipratropium 0.5 mg-albuterol 3 mg 3 ml inhalation Q4H PRN SOB #90 mL 07/21/23 05/21/24 05/21/24 Rx
(2.5 mg base)/3 mL nebulization
soln
aspirin 81 mg tablet,delayed 81 mg PO DAILY Blood Clot 03/27/24 05/21/24 05/21/24 History
release Prevention/Tx
budesonide 160 mcg-glycopyr 9 2 inh inhalation BID 03/27/24 05/21/24 05/21/24 History
mcg-formot 4.8 mcg/actuation HFA Lung/Breathing Issues
inhaler (Breztri Aerosphere)
albuterol sulfate 2.5 mg/3 mL 2.5 mg inhalation TID 05/21/24 05/21/24 05/21/24 History
(0.083 %) solution for nebulization Lung/Breathing Issues
albuterol sulfate 90 mcg/actuation 2 puff inhalation Q4HPRN PRN 05/21/24 05/21/24 Unknown History
aerosol inhaler shortness of breath
chlorthalidone 25 mg tablet 25 mg PO DAILY Blood Pressure 05/21/24 05/21/24 05/21/24 History
prednisone 10 mg tablet See Rx Instructions .Route 05/21/24 05/21/24 05/21/24 History
.COMPLEX 05/21/24 is day 6 of taper
rosuvastatin 10 mg tablet 10 mg PO DAILY High Cholesterol 05/21/24 05/21/24 05/21/24 History
Review of Systems
-
History Source: Patient
All other systems: Negative unless noted
Vitals / Labs / Diagnostic Testing
Vital Signs
Temp Pulse Resp BP Pulse Ox
98.1 F 91 18 121/78 93
11/06/24 14:23 05/21/24 14:59 05/21/24 14:59 05/21/24 14:23 05/21/24 14:59
Lab Data
05/21/24 09:31
05/21/24 10:45
Diagnostic Testing:
Physical Exam
-
HEENT: Normocephalic and Anicteric
Cardiovascular: S1/S2 and Peripheral Edema (negative)
Respiratory: Wheeze (negative), Rales (negative), Rhonchi (negative), Non-Labored Respirations and Other (Diminished breath sounds bilaterally)
GI: Soft, Non Distended, Tender (left flank region with palpation) and Normal Bowel Sounds
Neurology: AO x 3 and Tremors (negative)
Skin: Warm and Dry
General: Respiratory Distress (negative), Comfortable, Chills (negative) and Sweats (negative)
Assessment
-
Assessment: 53-year-old female active tobacco smoker with a past medical history of very severe COPD, depression, anxiety, history of right lung pneumonia and GERD who presents with worsening shortness of breath. She recently went to urgent care
about 1 week ago and diagnosed with bronchitis and COPD flare. She was started on steroids that did improve her symptoms but then on the morning prior to arrival her symptoms worsened. EMS administered her a nebulizer + Decadron and she did feel
about 50% better by the time she arrived here to the ER. Initially in the ER she was afebrile to 98.1 �F, pulse rate 104, breathing at 33 breaths/min, BP 128/85 and saturating 96% on room air. Initial labs showed leukocytosis to 19.7, Hb 15.5,
platelet count 414, absolute eosinophil count 200, elevated serum bicarbonate level 31, negative troponin at <0.012, proBNP WNL at 85.3, and COVID antigen negative. CXR showed no acute cardiopulmonary process. She was given Tylenol in the ER,
Toradol, morphine 2 mg + DuoNebs. She was admitted to telemetry under the hospitalist service, and pulmonary consulted for additional management/recommendations.
Chronic conditions [employer]: COPD, depression, anxiety, history of right lung pneumonia, GERD
Impression:
#Acute exacerbation of COPD
#Suspected muscle strain s/p cough after having spicy food last week with left flank/rib/abdominal pain
#Metabolic alkalosis, suspected to be from contraction alkalosis
#History of very severe COPD on Breztri with severe gas exchange capacity defect (post�bronchodilator FEV1: 0.7 L / 27% predicted; DLco: 26% predicted via PFT on 07/30/2023)
#Leukocytosis, likely steroid-induced
#Thrombocytosis, appears to have been elevated since 03/27/2024 (437 at that time)
#History of depression
#GERD
#Active tobacco smoker with [id number] history, currently smoking 0.25 PPD
Plan:
- Continue with systemic steroids and wean as she clinically improves
- Currently on Decadron 4 mg IV q12hr (equivalent to 53.3 mg of prednisone per day)
- Maintain euglycemia while on steroids with goal BG >100 and <180
- Nicotine patch offered but she wants to use nicotine gum instead; patient strongly encouraged to stop smoking
- Pt takes Breztri at home --> continue nebulized bronchodilators with DuoNebs QID with prn doses in between for breakthrough symptoms; also continue Budesonide BID
- Maintain SpO2 88-95% with supplemental O2 as needed
- Mucolytics with Mucinex
- May benefit from zithromax course for its anti-inflammatory effect (QTc: 446ms via EKG on 03/27/2024) --> after she is finished with course of zithromax given here during this hospitalization, will start zithromax 500mg TIW given that she has had
multiple flare up recently, , and she should obtain occasional EKG as an outpatient to monitor QTc (446ms on 03/27/2024 EKG) and also follow up with audiology
- She otherwise has no evidence for pneumonia and there is no need for antibiotics at this time; continue to trend WBC and monitor for fevers
- Pain control for her left sided flank/rib pain
- Will trial lidocaine patch and Flexeril to see if this brings her some relief
- Incentive spirometer encouraged 10x per hour for at least 4 hrs a day
- Replete electrolytes with K>4, Mg>2
- Given her tobacco smoking history with [id number]-sunu history, she qualifies for lung cancer screening via annual LDCT chest. Last CT chest done on 12/24/2023 showed a stable GGO in her right upper lobe, stable since 2020. Continue to obtain annual
imaging with next due in December 2024
- DVT ppx: LMWH
Pulmonary service will continue to follow along. Ultimately outpatient follow-up will be arranged as last visit was 03/04/[address] Gordillo.
Data:
CXR 05/21/2024: No acute cardiopulmonary process.
Total time spent today was 57 minutes for this encounter. Time includes reviewing laboratory test/imaging results, reviewing pertinent medical records, obtaining and reviewing medical history, performing an appropriate exam, ordering medications,
tests and procedures. Time also includes documentation of this encounter, coordinating patient care and communicating with other healthcare professionals. Total time does not include separately billed tests performed on this date of service.
[2024-05-21] MEDS: DECADRON 4 MG IV (15:42)
[2024-05-21] MEDS: ZITHROMAX 500 MG PO (15:42)
--- NOTE | 2024-05-21 16:24 | CM ---
CM met with Malka at bedside to complete IA. She is (I) amb and adls at baseline; lives with her , son and daughter in a 2 story home with door rise entry. No anticipated discharge needs at this time. CM to follow.
[2024-05-21] MEDS: PULMICORT 0.5 MG INH (19:35)
[2024-05-21] MEDS: LIDOCAINE 4% PATCH 1 PATCH TOPICAL (20:01)
[2024-05-21] MEDS: MUCINEX 600 MG PO (20:01)
[2024-05-21] MEDS: FLEXERIL 10 MG PO (20:19)
[2024-05-22] MEDS: TORADOL 15 MG IV (01:58)
[2024-05-22] MEDS: DECADRON 4 MG IV (02:00)
[2024-05-22] MEDS: DUONEB 3 ML INH ×4 (02:04→11:03)
[2024-05-22 03:32] VITALS: BP 115/68
[2024-05-22] MEDS: FLEXERIL 5 MG PO ×2 (03:38→11:18)
[2024-05-22 05:58] VITALS: BMI 24.2
[2024-05-22 07:12] VITALS: BP 108/67
[2024-05-22 07:18] LABS: Venous Blood Gas B.E. 4.1 mmol/L (-4 to +4); Venous Blood Gas HCO3 27.6 mmol/L (22-27); Venous Blood Gas O2 Sat % 98.9 %; Venous Blood Gas pCO2 37 mmHg (35-48); Venous Blood Gas pH 7.48 (7.32-7.43); Venous Blood Gas pO2 117 mmHg (30-50)
[2024-05-22] MEDS: PULMICORT 0.5 MG INH (07:27)
[2024-05-22 07:47] LABS: Blood Urea Nitrogen 22 mg/dl (7-17); Calcium 9.6 mg/dl (8.4-10.2); Carbon Dioxide 28 mmol/L (22-30); Chloride 101 mmol/L (98-107); Estimated Creatinine Clearance 83 ml/min; Glucose 171 mg/dl (70-99); Potassium 3.7 mmol/L (3.5-5.1); Sodium 138 mmol/L (135-145); eGFR > 60.00
[2024-05-22] MEDS: MUCINEX 600 MG PO (08:18)
[2024-05-22] MEDS: CRESTOR 10 MG PO (08:18)
[2024-05-22] MEDS: ASPIR LOW (ENTERIC COATED) 81 MG PO (08:18)
--- NOTE | 2024-05-22 09:17 | W.PN.PUL3 ---
Today's Communication / Plan
-
Okay for DC home with prednisone taper starting at 40 mg and reduce by 10 mg every fourth day until off
Outpatient follow-up will be arranged
Pain control for left-sided flank pain/muscular strain
After she has completed course of antibiotics then start Zithromax 500 mg TIW with outpatient trending of QTc and audiology follow-up
Resume Breztri upon discharge with prn albuterol (MDI + neb)
Patient is being prepared for discharge home today. No additional pulmonary recommendations at this time. Pulmonary service will now sign off. Please reconsult if there are any additional questions/concerns, or if patient's respiratory status
deteriorates. Outpatient follow-up will be arranged as last visit was 03/04/[address] Gordillo.
Assessment
-
Assessment: 53-year-old female active tobacco smoker with a past medical history of very severe COPD, depression, anxiety, history of right lung pneumonia and GERD who presents with worsening shortness of breath. She recently went to urgent care
about 1 week ago and diagnosed with bronchitis and COPD flare. She was started on steroids that did improve her symptoms but then on the morning prior to arrival her symptoms worsened. EMS administered her a nebulizer + Decadron and she did feel
about 50% better by the time she arrived here to the ER. Initially in the ER she was afebrile to 98.1 �F, pulse rate 104, breathing at 33 breaths/min, BP 128/85 and saturating 96% on room air. Initial labs showed leukocytosis to 19.7, Hb 15.5,
platelet count 414, absolute eosinophil count 200, elevated serum bicarbonate level 31, negative troponin at <0.012, proBNP WNL at 85.3, and COVID antigen negative. CXR showed no acute cardiopulmonary process. She was given Tylenol in the ER,
Toradol, morphine 2 mg + DuoNebs. She was admitted to telemetry under the hospitalist service, and pulmonary consulted for additional management/recommendations.
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
Impression:
#Acute exacerbation of COPD
#Suspected muscle strain s/p cough after having spicy food last week with left flank/rib/abdominal pain
#Metabolic alkalosis, suspected to be from contraction alkalosis with respiratory alkalosis in setting of pain
#History of very severe COPD on Breztri with severe gas exchange capacity defect (post�bronchodilator FEV1: 0.7 L / 27% predicted; DLco: 26% predicted via PFT on 07/30/2023)
#Leukocytosis, likely steroid-induced
#Thrombocytosis, appears to have been elevated since 03/27/2024 (437 at that time)
#History of depression
#GERD
#Active tobacco smoker with [id number] history, currently smoking 0.25 PPD
Plan:
- Continue with systemic steroids and wean as she clinically improves
- Currently on Decadron 4 mg IV q12hr (equivalent to 53.3 mg of prednisone per day) --> ok to start prednisone taper starting at 40 mg and reduce by 10 mg every fourth day until off
- Maintain euglycemia while on steroids with goal BG >100 and <180
- Nicotine patch offered but she wants to use nicotine gum instead; patient strongly encouraged to stop smoking
- Pt takes Breztri at home --> continue nebulized bronchodilators with DuoNebs QID with prn doses in between for breakthrough symptoms; also continue Budesonide BID
- Resume Breztri upon discharge
- Maintain SpO2 88-95% with supplemental O2 as needed
- Mucolytics with Mucinex
- May benefit from zithromax course for its anti-inflammatory effect (QTc: 467ms via EKG on 05/22/2024) --> after she is finished with course of zithromax given here during this hospitalization, would start zithromax 500mg TIW given that she has had
multiple COPD flare ups recently - she should obtain occasional EKGs as an outpatient to monitor QTc and also follow up with audiology
- She otherwise has no evidence for pneumonia and there is no need for additional antibiotics at this time; continue to trend WBC and monitor for fevers
- Pain control for her left sided flank/rib pain
- Trial lidocaine patch and Flexeril to see if this brings her some relief --> this seemed to help yesterday; continue this as needed on discharge for better pain control
- Incentive spirometer encouraged 10x per hour for at least 4 hrs a day
- Replete electrolytes with K>4, Mg>2
- Given her tobacco smoking history with [id number] history, she qualifies for lung cancer screening via annual LDCT chest. Last CT chest done on 12/24/2023 showed a stable GGO in her right upper lobe, stable since 2020. Continue to obtain annual
imaging with next due in December 2024
- DVT ppx: LMWH
Patient is being prepared for discharge home today. No additional pulmonary recommendations at this time. Pulmonary service will now sign off. Thank you for allowing us to be involved in the care of this patient. Please reconsult if there are
any additional questions/concerns, or if patient's respiratory status deteriorates. Outpatient follow-up will be arranged as last visit was 03/04/[address] Gordillo.
Data:
CXR 05/21/2024: No acute cardiopulmonary process.
Total time spent today was 39 minutes for this encounter. Time includes reviewing laboratory test/imaging results, reviewing pertinent medical records, obtaining and reviewing medical history, performing an appropriate exam, ordering medications,
tests and procedures. Time also includes documentation of this encounter, coordinating patient care and communicating with other healthcare professionals. Total time does not include separately billed tests performed on this date of service.
Subjective Data
-
Date of Service:
Date of Service: May 22, 2024
Chief Complaint: Pulmonary Follow Up and Dyspnea Follow Up
Subjective:
Patient was seen and evaluated today at bedside. She feels better although still with left-sided flank/rib pain especially when she takes a deep breath or coughs or upon palpation. Otherwise she feels okay, and is eager to go home. Denies HENLEY,
nausea, vomiting, diarrhea, fevers or chills.
Review of Systems
General: Other (Negative unless mentioned above)
Objective Data
Data Reviewed
Vital Signs / I&O / Oxygen:
Vital Signs
Temp Pulse Resp BP Pulse Ox
98.8 F 99 18 129/81 95
05/22/24 11:18 05/22/24 11:18 05/22/24 11:18 05/22/24 11:18 05/22/24 11:18
Intake and Output
05/21/24 05/22/24 05/23/24
06:59 06:59 06:59
Intake Total 720 / 720
Balance 720 / 720
SaO2 95
Physical Exam
General: Respiratory Distress (negative), Comfortable, Pain (left flank/left rib region), Chills (negative) and Sweats (negative)
HEENT: Normocephalic, Anicteric and Moist Mucous Membranes
Cardiovascular: S1-S2 and Peripheral Edema (negative)
Respiratory: Clear, Wheeze (negative), Crackles (negative), Rhonchi (negative), Accessory Resp Muscle Use (negative) and Other (Poor inspiratory effort)
GI: Soft, Non Distended, Tender (Left upper quadrant tenderness to palpation) and Normal Bowel Sounds
Neurology: AO x 3 and Tremors (negative)
Skin: Warm, Dry, Cyanosis (negative) and Jaundice (negative)
Labs/Micro/Reports
Lab Data
05/22/24 07:01
[2024-05-22 11:18] VITALS: BP 129/81
[2024-05-22] MEDS: LIDOCAINE 4% PATCH 1 PATCH TOPICAL (11:18)
--- NOTE | 2024-05-22 11:35 | W.PN.HOSP.TC ---
Addendum entered and electronically signed by Frederick Dc MD 05/22/24 15:40:
[id number]
Original Note:
Today's Communication/Plan
-
Switch to prednisone taper; 40mg x 4 days, and drop by 10mg every 4 days until off
Azithro 500mg x 5 days, and then MWF
pain control for chest wall/muscle Pull - Flexeril , lidocaine patch
Assessment / Plan
Assessment / Plan
Physical Exam
General: Comfortable and Conversant
HEENT: Anicteric and Moist mucous membranes
Respiratory: Non Labored Respirations, good air movement, no wheezing
Cardiac: S1/S2 and Regular Rhythm
GI: Soft and Non Tender
Musculoskeletal: No Clubbing, No Cyanosis and No Edema; left chest wall tenderness
Skin: Warm and Dry
Neuro: Awake, Alert, Oriented and Nonfocal/grossly intact
Psych: Calm
Acute COPD Exacerbation, failed outpatient treatment
-Consult Pulmonary, patient known to Dr. Gordillo
-Decadron 4mg IV q12 - switch to prednisone taper; 40mg x 4 days, and drop by 10mg every 4 days until off
- Azithro 500mg x 5 days, and then MWF
-Continue DuoNeb QID and PRN
-Continue Pulmicort Neb BID
-Monitor pulse ox - Check ambulatory pulse ox
Leukocytosis, likely related to steroids
-Trend WBC cell count
-No fevers
-f/u outpatient
Essential Hypertension
-Continue chlorthalidone
Hyperlipidemia
-Continue Crestor
Tobacco Use Disorder / Nicotine Dependence
-Continue Nicorette gum per patient request
-Encourage smoking cessation
DVT proph: Lovenox
Code Status: Full Code
More than 30 minutes spent in discharge including
Final examination of the patient
Summarizing hospital stay
Instructions for continuing care to all relevant caregivers
Preparation of discharge records, prescriptions, and referral forms
Total time spent (35 in minutes):
Anticipated Discharge: Today
Subjective/Interval History
-
Date of Service: May 22, 2024
no wheezing, still with left chest wall pain upon palpation
Objective Data
-
Labs:
Laboratory Results
05/22/24 05/22/24
07:01 11:20
WBC Pending
Hgb Pending
Hct Pending
Plt Count Pending
Sodium 138
Potassium 3.7
Chloride 101
Carbon Dioxide 28
BUN 22 H
Creatinine 0.6
Glucose 171 H
Calcium 9.6
Vital Signs:
Vital Signs
Temp Pulse Resp BP Pulse Ox
98.8 F 99 18 129/81 95
05/22/24 11:18 05/22/24 11:18 05/22/24 11:18 05/22/24 11:18 05/22/24 11:18
I&O
05/21/24 05/22/24 05/23/24
06:59 06:59 06:59
Intake Total 720 / 720
Balance 720 / 720
Review of Systems
-
History Source: Patient
All other systems: Not reviewed unless documented
Physical Exam
-
General: No Apparent Distress
HEENT: Normocephalic and Atraumatic
Respiratory: Negative Wheezes
Cardiac: Regular Rhythm
GI: Soft
Genito-urinary: No Costovertebral Tender
Neuro: AO x 3
Psych: Calm
Data Reviewed
-
Diagnostic Radiology: Image personally visualized and interpreted and Report Reviewed by me
Labs: Labs Reviewed by me
[2024-05-22 11:37] LABS: Hematocrit 40.8 % (37.0-47.0); Hemoglobin 13.9 g/dL (12.0-16.0); Mean Corp Hgb Conc. 34.1 g/dL (33.0-37.0); Mean Corpuscular Hgb 29.6 pg (27.0-31.0); Mean Corpuscular Volume 86.8 fL (81.0-99.0); Mean Platelet Volume 9.4 fL (7.4-10.4); Platelet Count 359 10^3/uL (130-400); Red Cell Dist. Width 15.2 % (11.5-14.5)
--- NOTE | 2024-05-22 11:42 | W.DS.TRANS ---
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
-
Discharge Instructions:
Discharge Diagnosis/Procedures Acute COPD Exacerbation, failed outpatient
treatment
Diet Low Cholesterol,Low Fat
Activity As tolerated
Blood Work cbc in 3-5 days
Instructions:
Stand-Alone Forms:
Changes to Home Medications: Yes
Discharge Medications:
DC Medications w/original date entered in [employer]
aspirin 81 mg tablet,delayed release 81 mg PO DAILY Blood Clot Prevention/Tx 03/27/24
budesonide 160 mcg-glycopyr 9 mcg-formot 4.8 mcg/actuation HFA inhaler ([employer]) 2 inh inhalation BID Lung/Breathing Issues 03/27/24
albuterol sulfate 2.5 mg/3 mL (0.083 %) solution for nebulization 2.5 mg inhalation TID Lung/Breathing Issues 05/21/24
albuterol sulfate 90 mcg/actuation aerosol inhaler 2 puff inhalation Q4HPRN PRN shortness of breath 05/21/24
chlorthalidone 25 mg tablet 25 mg PO DAILY Blood Pressure 05/21/24
rosuvastatin 10 mg tablet 10 mg PO DAILY High Cholesterol 05/21/24
azithromycin 250 mg tablet 500 mg (2 x 250 mg) PO Q24H 4 days #8 tabs 05/22/24
azithromycin 500 mg tablet 500 mg PO MOWEFR 60 days #26 tabs 05/22/24
cyclobenzaprine 10 mg tablet 5 mg (1/2 x 10 mg) PO Q8HPRN PRN pain #15 tabs 05/22/24
ipratropium 0.5 mg-albuterol 3 mg (2.5 mg base)/3 mL nebulization soln 3 ml inhalation Q4H PRN SOB #180 mL 05/22/24
lidocaine 4 % topical patch 1 patch topical DAILY #30 ea 05/22/24
prednisone 10 mg tablet See Rx Instructions .Route .COMPLEX #45 tabs 05/22/24
Home Medication Changes
azithromycin 250 mg tablet 500 mg (2 x 250 mg) PO Q24H 4 days #8 tabs 05/22/24
azithromycin 500 mg tablet 500 mg PO MOWEFR 60 days #26 tabs 05/22/24
cyclobenzaprine 10 mg tablet 5 mg (1/2 x 10 mg) PO Q8HPRN PRN pain #15 tabs 05/22/24
ipratropium 0.5 mg-albuterol 3 mg (2.5 mg base)/3 mL nebulization soln 3 ml inhalation Q4H PRN SOB #180 mL 05/22/24
lidocaine 4 % topical patch 1 patch topical DAILY #30 ea 05/22/24
prednisone 10 mg tablet See Rx Instructions .Route .COMPLEX #45 tabs 05/22/24
Pending Results: No
--- NOTE | 2024-05-22 13:51 | CM ---
Addendum entered by Yessi Carmen 05/22/24 13:57:
AVIS provided [facility] smoking cessation program information to Malka. She did not indicate if she would pursue or not.
Original Note:
AVIS met with Malka. She is ready for discharge and has a ride coming at 3pm. She is comfortable with her medications, has a nebulizer at home.
Plan: Discharge to home with no needs.
== END 2024-05-22 15:16 | disposition home or self-care (01) | DRG 192 ==
LOC: 4 EAST ACU 13:40
PROVIDERS: Physician Assistant Medical; ADMITTING PHYSICIAN Hospitalist; ATTENDING PHYSICIAN Internal Medicine; CONSULT PHYSICIAN Internal Medicine Critical Care Medicine; EMERGENCY PHYSICIAN Emergency Medicine; FAMILY PHYSICIAN Family Medicine
DX: J44.1 Chronic obstructive pulmonary disease with (acute) exacerbation (principal); D72.829 Elevated white blood cell count, unspecified; T38.0X5A Adverse effect of glucocorticoids and synthetic analogues, initial encounter; M79.18 Myalgia, other site; Z79.82 Long term (current) use of aspirin; Z79.899 Other long term (current) drug therapy; I10 Essential (primary) hypertension; F17.210 Nicotine dependence, cigarettes, uncomplicated; Z80.52 Family history of malignant neoplasm of bladder; Z82.49 Family history of ischemic heart disease and other diseases of the circulatory system; Z80.3 Family history of malignant neoplasm of breast; Z82.0 Family history of epilepsy and other diseases of the nervous system; F32.A Depression, unspecified; E78.5 Hyperlipidemia, unspecified; F41.9 Anxiety disorder, unspecified; K21.9 Gastro-esophageal reflux disease without esophagitis; Z11.52 Encounter for screening for COVID-19
CPT/HCPCS: 71046; 80048; 82805; 83880; 84132; 84484; 85025; 85027; 85379; 87811; 93005; 94640; 96374; 96375; 99285; 99406

== ENCOUNTER → 2024-05-26 15:18 | Outpatient (REF) | payer BC, SELFPAY | LOC: HWRAD 15:18 | PROVIDERS: ATTENDING PHYSICIAN Internal Medicine Critical Care Medicine; FAMILY PHYSICIAN Family Medicine | DX: J18.9 Pneumonia, unspecified organism (principal) | CPT/HCPCS: 71250 ==

== ENCOUNTER 2024-10-21 20:13 | Inpatient (IN) | payer BC, SELFPAY ==
[2024-10-21 12:50] VITALS: BP 141/86
[2024-10-21 13:17] LABS: % Basophils 0.5 % (0-2); % Eosinophils 1.7 % (0-6); % Immature Granulocytes 0.4 % (0-0.5); % Lymphocytes 23.2 % (20.5-51.1); % Monocytes 5.5 % (1.7-9.3); % Neutrophils 68.7 % (42.2-75.2); Absolute Basophils 0.1 10^3/uL (0-0.2); Absolute Eosinophils 0.2 10^3/uL (0-0.7); Absolute Immature Granulocytes 0.1 10^3/uL (0-0.05); Absolute Lymphocytes 2.7 10^3/uL (1.2-3.4); Absolute Monocytes 0.6 10^3/uL (0.1-0.6); Absolute Neutrophils 7.8 10^3/uL (1.4-6.5); Hematocrit 46.7 % (37.0-47.0); Hemoglobin 15.7 g/dL (12.0-16.0); Mean Corp Hgb Conc. 33.6 g/dL (33.0-37.0); Mean Corpuscular Volume 86.3 fL (81.0-99.0); Mean Platelet Volume 9.3 fL (7.4-10.4); Nucleated Red Blood Cells % 0 %; Platelet Count 323 10^3/uL (130-400); Red Blood Cell Count 5.41 10^6/uL (4.20-5.40); Red Cell Dist. Width 13.8 % (11.5-14.5); White Blood Cell Count 11.4 10^3/uL (4.8-10.8)
[2024-10-21 13:33] LABS: ALT (SGPT) 21 U/L (0-35); AST (SGOT) 22 U/L (14-36); Albumin 4.1 g/dl (3.5-5.0); Alkaline Phosphatase 107 U/L (38-126); Blood Urea Nitrogen 17 mg/dl (7-17); Calcium 10.4 mg/dl (8.4-10.2); Carbon Dioxide 36 mmol/L (22-30); Chloride 100 mmol/L (98-107); Glucose 130 mg/dl (70-99); Potassium 3.2 mmol/L (3.5-5.1); Sodium 142 mmol/L (135-145); Total Bilirubin 0.5 mg/dl (0.2-1.3); Total Protein 6.5 g/dl (6.3-8.2); eGFR > 60.00
[2024-10-21 13:38] LABS: NT-proBNP 85.8 pg/ml
[2024-10-21 13:40] LABS: COVID-19 Antigen Negative (Negative)
--- NOTE | 2024-10-21 14:40 | ED.GENMED ---
History of Present Illness
<Milka Beasley PA-C - Last Filed: 10/21/24 20:00>
General
Chief Complaint: Breathing Problem
Source: patient
Exam Limitations: none
Time Seen by Provider: 10/21/24 14:34
Nursing documentation reviewed up to this point in time: agreed with
History of Present Illness
History of Present Illness:
54 y/o F with h/o COPD no o2, no chronic steroids
here with dyspnea since yesterday, different than her usual COPD
she last had steroisd a few months ago, wasn't admitted recently
followed by dr. espinal
says that about a month ago she was added budesonide solution bid and a new inhaler in addition to her breztri
she says that yesterday she noticed that wtih any minimal exertion she was really out of breath and her pulse ox dropped [id number]
she normamlly has pulse ox 92%
does not wear O2
no fever/chills, vomiting, diarrhea, sore throat
she has slightly productive cough occasionally
pleuritic CP
no recent illness, no recent travel, no recent surgery
no h/o DVT/PE.
Past History
<Milka Beasley PA-C - Last Filed: 10/21/24 20:00>
Past History
ED Past Medical History: Asthma
ED Past Surgical History: Negative Cholecystectomy
Social History
Tobacco: Smoker
Alcohol: Occasional
Drug: None
Personal:
Living: with family
Family History
Family History: Other (non contributory)
Review of Systems
<LAYTON Sepulveda Last Filed: 10/21/24 20:00>
Review of Systems
Allergies reviewed?: Yes
All Other Systems: Not applicable
Phy Exam
<Milka Beasley PA-C - Last Filed: 10/21/24 20:00>
Physical Exam
Physical Exam:
GENERAL: Alert , in no apparent distress
EYE: pupils equal and reactive
NECK: Supple
ENT: o/p clr, mmm.
CARDIAC: tachycardic
LUNGS: tachypneic, very diminished throughout; faint end exp wheezing b/l
no cough
ABDOMEN: Soft, without focal tenderness, no r/g, no cvat, normal bowel sounds
NEUROLOGICAL: Alert and oriented, no focal neuro deficits
SKIN: Warm and dry, skin intact.
MUSCULOSKELETAL: No edema, well perfused. neg audrey's sign
PSYCH: Normal and appropriate interaction.
Scores
<Milka Beasley PA-C - Last Filed: 10/21/24 20:00>
Heart Failure Risk
Heart Failure Risk Score: Not Applicable
Course
<Milka Beasley PA-C - Last Filed: 10/21/24 20:00>
Orders/Labs/Results
Orders:
Orders
10/21/24 12:52
Electrocardiogram (*1) Urgent
Reason for Study: Shortness of Breath
CR Chest - 2 Views Urgent
Comment:
Reason For Exam: shortness of breath
10/21/24 12:53
EKG- Treatment ONCE
10/21/24 13:06
COVID-19 Antigen Urgent
Source: Nasal Swab
Complete Blood Count/With Diff Urgent
Comprehensive Metabolic Panel Urgent
Pro-BNP [NT-proBNP] Urgent
Influenza A+B Rapid Molecular Urgent
MADHAV Source: Nasal Swab
Specimen Description:
10/21/24 14:58
CT Chest PE Study Urgent
Comment:
Reason For Exam: sob, ches t pain, hypoxia
Dexamethasone Sod Phosphate [Decadron] 10 mg IV NOW STA
Ipratropium/Albuterol Sulfate [Duoneb] 3 ml INH R NOW STA
10/21/24 15:16
Troponin I Urgent
10/21/24 18:35
Ipratropium/Albuterol Sulfate [Duoneb] 3 ml INH R NOW STA
10/21/24 19:10
Potassium Chloride [KCl] 40 meq PO NOW STA
10/21/24 19:44
Admit/Transfer Patient As Directed
Co-Sign Provider:
Level of Care: Inpatient admission
Assign to:: Medical/Surgical
Physician / Group: mira mayer
Diagnosis: acute on chronic COPD exacerbation, hypokalemia, nicotine abuse
Reason for Hospitalization: acute on chronic COPD exacerbation, hypokalemia, nicotine abuse
Expected length of stay greater than two midnights?: Yes
ELOS- Estimated Length of Stay in days: 3
I certify the patient meets the requirements for IP care: Yes
Code Status As Directed
Resuscitation Status: Full Code
10/21/24 19:55
PRN Pain Medication Management As Directed
May give lesser potent ordered pain med per pt: Yes
preference::
Protocol:: Medication orders for pain may be administered in a
manner that supports deferring to patient preference
when the pt is:
- Requesting an ordered lesser potent pain medication.
Least to most potent pain medications are defined
as: acetaminophen < NSAID < tramadol < opioids
(morphine, oxycodone, hydromorphone).
- Requesting a lesser dose of the same medication IF
ORDERED.
- Requesting a less intrusive route of administration
if both routes are prescribed by the provider (PO <
IV).
Abnormal Lab Results
10/21/24
13:06
WBC 11.4 H 10^3/uL
(4.8-10.8)
RBC 5.41 H 10^6/uL
(4.20-5.40)
Abs Immat Gran (auto) 0.1 H 10^3/uL
(0-0.05)
Absolute Neuts (auto) 7.8 H 10^3/uL
(1.4-6.5)
Potassium 3.2 L mmol/L
(3.5-5.1)
Carbon Dioxide 36 H mmol/L
(22-30)
Glucose 130 H mg/dl
(70-99)
Calcium 10.4 H mg/dl
(8.4-10.2)
10/21/24 13:06
10/21/24 13:06
Vital Signs
Initial and Last Documented VS:
Initial Vital Signs
Temp Pulse Resp BP Pulse Ox
36.8 C 113 20 141/86 94
10/21/24 12:50 10/21/24 12:50 10/21/24 12:50 10/21/24 12:50 10/21/24 12:50
Last Documented Vital Signs
Temp Pulse Resp BP Pulse Ox
36.8 C 99 19 127/73 96
10/21/24 12:50 10/21/24 19:00 10/21/24 19:00 10/21/24 19:00 10/21/24 19:00
<Mauricio Asif, DO - Last Filed: 10/21/24 16:18>
Orders/Labs/Results
Orders:
Orders
10/21/24 12:52
Electrocardiogram (*1) Urgent
Reason for Study: Shortness of Breath
CR Chest - 2 Views Urgent
Comment:
Reason For Exam: shortness of breath
10/21/24 12:53
EKG- Treatment ONCE
10/21/24 13:06
COVID-19 Antigen Urgent
Source: Nasal Swab
Complete Blood Count/With Diff Urgent
Comprehensive Metabolic Panel Urgent
Pro-BNP [NT-proBNP] Urgent
Influenza A+B Rapid Molecular Urgent
MADHAV Source: Nasal Swab
Specimen Description:
10/21/24 14:58
CT Chest PE Study Urgent
Comment:
Reason For Exam: sob, ches t pain, hypoxia
Dexamethasone Sod Phosphate [Decadron] 10 mg IV NOW STA
Ipratropium/Albuterol Sulfate [Duoneb] 3 ml INH R NOW STA
10/21/24 15:16
Troponin I Urgent
10/21/24 18:35
Ipratropium/Albuterol Sulfate [Duoneb] 3 ml INH R NOW STA
10/21/24 19:10
Potassium Chloride [KCl] 40 meq PO NOW STA
10/21/24 19:44
Admit/Transfer Patient As Directed
Co-Sign Provider:
Level of Care: Inpatient admission
Assign to:: Medical/Surgical
Physician / Group: mira mayer
Diagnosis: acute on chronic COPD exacerbation, hypokalemia, nicotine abuse
Reason for Hospitalization: acute on chronic COPD exacerbation, hypokalemia, nicotine abuse
Expected length of stay greater than two midnights?: Yes
ELOS- Estimated Length of Stay in days: 3
I certify the patient meets the requirements for IP care: Yes
Code Status As Directed
Resuscitation Status: Full Code
10/21/24 19:55
PRN Pain Medication Management As Directed
May give lesser potent ordered pain med per pt: Yes
preference::
Protocol:: Medication orders for pain may be administered in a
manner that supports deferring to patient preference
when the pt is:
- Requesting an ordered lesser potent pain medication.
Least to most potent pain medications are defined
as: acetaminophen < NSAID < tramadol < opioids
(morphine, oxycodone, hydromorphone).
- Requesting a lesser dose of the same medication IF
ORDERED.
- Requesting a less intrusive route of administration
if both routes are prescribed by the provider (PO <
IV).
Abnormal Lab Results
10/21/24
13:06
WBC 11.4 H 10^3/uL
(4.8-10.8)
RBC 5.41 H 10^6/uL
(4.20-5.40)
Abs Immat Gran (auto) 0.1 H 10^3/uL
(0-0.05)
Absolute Neuts (auto) 7.8 H 10^3/uL
(1.4-6.5)
Potassium 3.2 L mmol/L
(3.5-5.1)
Carbon Dioxide 36 H mmol/L
(22-30)
Glucose 130 H mg/dl
(70-99)
Calcium 10.4 H mg/dl
(8.4-10.2)
10/21/24 13:06
10/21/24 13:06
Vital Signs
Initial and Last Documented VS:
Initial Vital Signs
Temp Pulse Resp BP Pulse Ox
36.8 C 113 20 141/86 94
10/21/24 12:50 10/21/24 12:50 10/21/24 12:50 10/21/24 12:50 10/21/24 12:50
Last Documented Vital Signs
Temp Pulse Resp BP Pulse Ox
36.8 C 99 19 127/73 96
10/21/24 12:50 10/21/24 19:00 10/21/24 19:00 10/21/24 19:00 10/21/24 19:00
<Milka Beasley PA-C - Last Filed: 10/21/24 20:00>
MDM/Problems Addressed
Differential Diagnosis Includes:
copd, hypoxia, CHF, ACS, abnormal EKG, PE
MDM/Problems Addressed:
Malka Miles
54 y/o F copd followed by dr. espinal
yesterday RAMACHANDRAN and pleuritic cp with cough, worse than normal copd; exertional dyspnea and hypoxia into 80s
wheezing faintly, initially not hypoxic at rest; but dyspneic on conversation and desats with talking to 89%
ct PE neg
abnormal EKG with subtle [address] degress II, III, avF; trop neg
no pna, covid flu neg
given steroids and nebs; wheezing more now after neb; will order 2nd
trend trops, pulm
<Milka Beasley PA-C - Last Filed: 10/21/24 20:00>
*Critical Care Note
Total Time (30-74mins, 75-104mins- exclusive of procedures): Not Applicable
ED Attending Note
<Milka Beasley PA-C - Last Filed: 10/21/24 20:00>
-
Portions of this chart may have been created with voice recognition software.� Occasional wrong word or��sound alike� substitutions may have occurred due to the inherent limitations of voice recognition software.
<Mauricio Asif DO - Last Filed: 10/21/24 16:18>
ED Attending Note
Patient seen and examined by attending physician: Yes
I performed the substantive portion of visit, reviewed & personally made and approve the management plan that is documented in note by myself or SRINIVASAN.: Yes
ED Attending Note:
I have seen and evaluated the patient with a [id number]-[id number] encounter. I have spoken to the advance practicer provider and involved in the medical history, the physical exam, medical decision making.
Evaluation and management service: agree unless noted differently below.
Results interpretation: agree unless noted differently below.
Focused HPI: 54-year-old female presenting with shortness of breath. She does have a mild cough. On exam, there is mild wheezing. She states she is short of breath with minimal exertion but denies cardiac history
Physical exam: Mild wheezing noted. No leg edema
Medical Decision Making: Chest x-ray clear. Symptoms improved somewhat with DuoNeb and steroids. However, she does have EKG changes. Troponin negative but will obtain CT rule out PE. If CT negative, will admit for exertional dyspnea with EKG
changes
Discharge Plan
Departure
Patient Disposition: Admit
Date of Disposition: 10/21/24
Time of Disposition: 17:29
Admit to: Telemetry
Presentation/result/management discussed w/ accepting MD/DO: Hospitalist
Condition: Fair
Covid-19: Not Applicable
Discharge Problem:
COPD exacerbation, Dyspnea on exertion
Prescriptions:
No Action
Breztri Aerosphere 160-9-4.8 mcg/actuation Hfa Aerosol Inhaler
2 inh INHALATION R BID
aspirin 81 mg Tablet,Delayed Release (Dr/Ec)
81 mg PO DAILY
chlorthalidone 25 mg tablet
25 mg PO DAILY
albuterol sulfate 2.5 mg /3 mL (0.083 %) solution for nebulization
2.5 mg inhalation R Q6HPRN PRN (Reason: sob)
albuterol sulfate 90 mcg/actuation Hfa Aerosol Inhaler
2 puff INHALATION Q4HPRN PRN (Reason: shortness of breath )
Theragen Tablet
1 tab PO DAILY
ascorbic acid (vitamin C) [Vitamin C] 500 mg Tablet
500 mg PO DAILY
budesonide 0.5 mg/2 mL Suspension For Nebulization
0.5 mg INHALATION R BID
rosuvastatin 20 mg Tablet
20 mg PO DAILY
arformoterol 15 mcg/2 mL Solution For Nebulization
2 ml INHALATION R BID
Referrals:
Romie Vela MD [Family Provider] -
Interventions
Interventions:
*Risk Screen - Suicide Last Done: 10/21/24 12:50
*General Assessment Last Done: 10/21/24 12:50
*Neglect/Abuse Screening Last Done: 10/21/24 12:50
*ED- Fall Risk Assessment Last Done: 10/21/24 15:09
*ED COVID-19 Vaccine History Last Done: 10/21/24 15:09
ED- Cardiac Assessment Last Done: 10/21/24 15:09
ED- Pulmonary Assessment Last Done: 10/21/24 15:09
Discharge Date and Time
Print Language: ALBANIAN
[2024-10-21 15:09] VITALS: BMI 25.8
[2024-10-21] MEDS: DECADRON 10 MG IV (15:12)
[2024-10-21] MEDS: DUONEB 3 ML INH ×3 (15:12→21:51)
[2024-10-21 15:52] LABS: Troponin I < 0.012 ng/ml
[2024-10-21 19:00] VITALS: BP 127/73
--- NOTE | 2024-10-21 19:08 | HPS.HSE ---
Family Physician
-
Family Physician: Romie Vela
Chief Complaint
-
Dyspnea on exertion, hypoxia with activity
History of Present Illness
54-year-old female who noticed yesterday that her pulse ox was dropping to the 70s and 80% when she is normally at 94%. She noticed dyspnea on exertion with minimal exertion exercise. She also reports slightly productive cough. She feels this is
different than her usual COPD she had last steroid a few months ago she follows with Dr. Gordillo pulmonology and had budesonide solution twice daily with her Breztri then was due to joshua Emilyvirgenedilia but her insurance denied this. 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 She is only 54 years old she has no source of income she is not considered disabled nor filled out any paperwork she is currently living with her son and niece. I advised her to
follow-up with her womens volleyball coach to see if she qualifies for any kind of disability. she denies current headache, fever, sore throat, chills, chest pain, palpitations, abdominal pain, nausea, vomiting, diarrhea, urinary symptoms, rash, sick contacts.
She had last in-hospital admission May 2024 for acute COPD exacerbation where she required Decadron IV, prednisone taper starting at 40 mg and a Zithromax 500 x 5 days.
She has past medical history of COPD, active smoker, HTN�benign, hyperlipidemia, leukocytosis related to steroid use.
Medical History
Past Medical History
Past Medical History: Reports Other
Additional Past Medical History:
COPD
active smoker
HTN�benign
hyperlipidemia
leukocytosis related to steroid use.
Past Surgical History: Reports Other
Additional Past Surgical History:
Cholecystectomy
D&E
Social History
Tobacco: Smoker (Patient reports smoking about 5 cigarettes per day)
Alcohol: None
Drug: None
Personal: Single
Living: With Family (Lives with son and her niece)
Employment: Not Employed
Family History
Family History: Not pertinent and Other (Mother: HTN Father: Bladder Cancer GM: Breast Cancer)
Allergies / Home Medications
Allergies reflects when Allergies were last updated in [employer].
Home Medications with original date entered in [employer]
Allergy/Medication List:
Allergies
Allergy/AdvReac Type Severity Reaction Status Date / Time
dextrose Allergy Unknown Verified 03/27/24 01:45
nirmatrelvir [From Paxlovid] Allergy Rash Verified 03/27/24 01:45
ritonavir [From Paxlovid] Allergy Rash Verified 03/27/24 01:45
theophylline Allergy Unknown Verified 03/27/24 01:45
Home Medications
ipratropium 0.5 mg-albuterol 3 mg (2.5 mg base)/3 mL nebulization soln 3 ml inhalation Q4H PRN SOB #90 mL 07/21/23
aspirin 81 mg tablet,delayed release 81 mg PO DAILY Blood Clot Prevention/Tx 03/27/24
budesonide 160 mcg-glycopyr 9 mcg-formot 4.8 mcg/actuation HFA inhaler (SecretSalesztri Aerosphere) 2 inh inhalation BID Lung/Breathing Issues 03/27/24
albuterol sulfate 2.5 mg/3 mL (0.083 %) solution for nebulization 2.5 mg inhalation TID Lung/Breathing Issues 05/21/24
albuterol sulfate 90 mcg/actuation aerosol inhaler 2 puff inhalation Q4HPRN PRN shortness of breath 05/21/24
chlorthalidone 25 mg tablet 25 mg PO DAILY Blood Pressure 05/21/24
prednisone 10 mg tablet See Rx Instructions .Route .COMPLEX 05/21/24 is day 6 of taper 05/21/24
rosuvastatin 10 mg tablet 10 mg PO DAILY High Cholesterol 05/21/24
Review of Systems
-
History Source: Patient
A 12 point ROS was completed and negative except as noted: Yes
Constitutional: Denies Fever or Chills
EENT: Denies Sore Throat or Runny Nose
Respiratory: Reports Trouble Breathing (Wheezing, dyspnea on exertion short distance); Denies Cough
Cardiac: Denies Chest Pain, Diaphoresis, Palpitations or Syncope
Abdomen/GI: Denies Abdominal Pain, Nausea, Vomiting, Diarrhea, Constipated, Bloody Stools or Black Stools
: Denies Dysuria, Frequency, Flank Pain, Incontinence, Difficulty Voiding or Urgency
Musculoskeletal: Denies Joint Pain or Edema
Skin: Denies Itching or Rash
Neurological: Denies Dizzy, Headache or Weakness
Endocrine: Reports No Symptoms
Hematologic/Lymphatic: Reports No Symptoms
Psych: Reports Calm
Physical Exam
Vital Signs
Vital Signs
Temp Pulse Resp BP Pulse Ox
98.3 F 99 19 127/73 96
10/21/24 12:50 10/21/24 19:00 10/21/24 19:00 10/21/24 19:00 10/21/24 19:00
Physical Exam
General: Comfortable and Conversant; No Pain or Fever
HEENT: NormoCephalic, Anicteric, Moist mucous membranes, Atraumatic, PERRLA and Oxygen (2 L nasal cannula)
Respiratory: Wheezes (Expiratory bilaterally post neb treatment); No Rales
Cardiac: S1/S2 and Regular Rhythm; No Murmur, Rub, Gallop or Peripheral Edema
Breast: Deferred by me
GI: Soft, Non Tender, Non Distended, Normal Bowel Sounds and No Hepatosplenomegaly
Rectal: Deferred by Provider
Genito-urinary: Deferred by me
Musculoskeletal: No Clubbing, No Cyanosis and No Edema
Skin: Warm and Dry; No Rash
Neuro: AO x 3, No Motor Deficits, Nonfocal/grossly intact, Cranial Nerves Intact and No Sensory Deficits; No Slurred Speech, Facial Droop, Tremors or Sedated
Psych: Calm
Laboratory Results
-
10/21/24 13:06
10/21/24 13:06
Laboratory Results
Total Bilirubin 0.5 mg/dl (0.2-1.3) 10/21/24 13:06
AST 22 U/L (14-36) 10/21/24 13:06
ALT 21 U/L (0-35) 10/21/24 13:06
Alkaline Phosphatase 107 U/L (38-126) 10/21/24 13:06
Troponin I < 0.012 ng/ml 10/21/24 15:16
Data Reviewed
-
Diagnostic Radiology: Report Reviewed by me
Lab Data: Labs Reviewed by me
Impression/Plan
-
[facility]
#Acute hypoxic respiratory insufficiency secondary to acute on chronic COPD exacerbation
88% RA, 96% 2L NC
WBC 11.4 no shift, afebrile 98.3, HR 86, 141/86
-Decadron 10 mg given in ER
-Continue IV Decadron 4 mg every 12 hours
- DuoNebs 4 times daily and as needed
- Continue budesonide twice daily and arformoterol 2 mL inhalation twice daily-patient advised to stop Breztri as this has duplicate budesonide
- Patient was due to get Yulperi but her insurance denied it
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
-Consult pulmonology
Consult PT/OT/case management
CTA chest: No evidence of PE
Small hiatal hernia
Centrilobular emphysema otherwise no significant
abnormality identified in the chest
CXR: No acute cardiopulmonary process
#Nicotine abuse
- Strongly cessation advised 38-year 1 pack a day and 1 year 1/2 to 1/4 pack a day still smoking
#Hypokalemia secondary to diuretic
K3.2
-KCl 40 mEq
EKG sinus rhythm with sinus arrhythmia 96 bpm, QTc 464 MS nonspecific T wave abnormality improved in anterior lateral leads when compared to May 2024
#HTN
BP 141/86
-Continue chlorthalidone
#HLD
-Continue Crestor
Hx COVID infection 06/29/2023
DVT prophylaxis
Subcu Lovenox
Full code
--- NOTE | 2024-10-21 19:47 | W.PN.UPDATE ---
Update Note
Progress Note Update
This is an addendum to the H&P written by Deena Wright on 10/21/2024. Patient seen and examined independently with BILLING ADMINISTRATOR.
54-year-old female past medical history of COPD on budesonide, aformoterol inhaler and bzetri, active smoker, hypertension, hyperlipidemia, tobacco use disorder, presenting with shortness of breath with hypoxemia to 70 to 80% since yesterday. Has
slight productive cough. Has pleuritic chest pain.
Patient tachycardic on examination.
Labs show potassium 3.2. Leukocytosis of 11.4.
Chest x-ray shows no acute process. CT PE shows no evidence of pulmonary embolism, small hiatal hernia, centrilobular emphysema. EKG shows sinus rhythm with sinus arrhythmia.
COVID and flu negative.
Presentation consistent with acute COPD exacerbation. lambert Gonzáles. Pulmonary consulted as patient on redudant inhalers.
Hypokalemia secondary to chlorthalidone. Replete potassium.
[2024-10-21 20:00] VITALS: BP 137/81
[2024-10-21] MEDS: KCL 40 MEQ PO (20:11)
[2024-10-21 21:08] VITALS: BP 147/85; BMI 24.5
[2024-10-21] MEDS: PULMICORT 0.5 MG INH (21:51)
[2024-10-21 23:30] VITALS: BP 102/60
--- NOTE | 2024-10-22 00:06 | PTCARENOTE ---
Pt. arrived to unit from ED via stretcher. Pt. able to safely ambulate into room 318-2 on . Patient AAOx3 and able to make needs known. On O2 @ 2L via NC. Pt. reports O2 is new for her. Oriented to unit. Call shepherd within reach. Plan of care
ongoing.
[2024-10-22] MEDS: DECADRON 4 MG IV ×2 (03:46→16:34)
[2024-10-22 06:49] LABS: % Basophils 0.2 % (0-2); % Immature Granulocytes 0.4 % (0-0.5); % Lymphocytes 9.8 % (20.5-51.1); % Neutrophils 87.6 % (42.2-75.2); Absolute Monocytes 0.2 10^3/uL (0.1-0.6); Absolute Neutrophils 9.2 10^3/uL (1.4-6.5); Hematocrit 43.4 % (37.0-47.0); Mean Corp Hgb Conc. 34.6 g/dL (33.0-37.0); Mean Corpuscular Hgb 29.9 pg (27.0-31.0); Mean Corpuscular Volume 86.6 fL (81.0-99.0); Mean Platelet Volume 9.5 fL (7.4-10.4); Nucleated Red Blood Cells % 0 %; Platelet Count 307 10^3/uL (130-400); Red Blood Cell Count 5.01 10^6/uL (4.20-5.40); Red Cell Dist. Width 13.7 % (11.5-14.5); White Blood Cell Count 10.5 10^3/uL (4.8-10.8)
[2024-10-22 07:05] VITALS: BP 107/64
[2024-10-22 07:09] LABS: ALT (SGPT) 18 U/L (0-35); AST (SGOT) 19 U/L (14-36); Albumin 4.2 g/dl (3.5-5.0); Alkaline Phosphatase 115 U/L (38-126); Blood Urea Nitrogen 20 mg/dl (7-17); Calcium 9.9 mg/dl (8.4-10.2); Carbon Dioxide 30 mmol/L (22-30); Chloride 103 mmol/L (98-107); Estimated Creatinine Clearance 82 ml/min; Glucose 129 mg/dl (70-99); Sodium 141 mmol/L (135-145); Total Bilirubin 0.4 mg/dl (0.2-1.3); Total Protein 6.3 g/dl (6.3-8.2); eGFR > 60.00
[2024-10-22] MEDS: PULMICORT 0.5 MG INH ×2 (07:23→19:50)
[2024-10-22] MEDS: DUONEB 3 ML INH ×4 (07:23→19:51)
[2024-10-22] MEDS: VITAMIN C 500 MG PO (08:28)
[2024-10-22] MEDS: THERAGRAN 1 TABLET PO (08:28)
[2024-10-22] MEDS: ASPIR LOW (ENTERIC COATED) 81 MG PO (08:28)
[2024-10-22] MEDS: Hygroton PO (08:29)
--- NOTE | 2024-10-22 14:43 | CON.PUL ---
Consultation
Consultation Request
Date/Time Consultation Requested: 10/22/2024
Date/Time Consultation Performed: 10/22/2024
Medical History
-
Chief Complaint: Shortness of breath
History of Present Illness:
Patient is a very pleasant 54-year-old female with severe underlying COPD/emphysema, on triple therapy with LAMA/LABA/ICS, presents to the hospital with increasing dyspnea, increasing cough with expectoration as well as hypoxia. Patient reports
that her family members had supposed allergy last week but now she thinks they might have some upper respiratory viral infection. Over the last few days she started having increased cough, with increased sputum production, also the color of sputum
started to turn more dark and greenish. She has been on Breztri in the past and was recently switched to 2 budesonide, Brovana as well as Yupelri. However Yupelri was denied by her insurance.
Workup in the emergency room included a CT scan which was negative for any pulmonary embolism. In view of her severe underlying COPD and worsening symptoms with hypoxia, pulmonary consultation was requested for further input.
Past Medical History
Past Medical History: Reports Other
Additional Past Medical History:
COPD
active smoker
HTN�benign
hyperlipidemia
leukocytosis related to steroid use.
Past Surgical History: Reports Other
Additional Past Surgical History:
Cholecystectomy
D&E
Social History
Tobacco: Smoker (Patient reports smoking about 5 cigarettes per day), > 30 pack year smoking history
Alcohol: None
Drug: None
Personal: Single
Living: With Family (Lives with son and her niece)
Employment: Not Employed
Family History
Family History: Not pertinent and Other (Mother: HTN Father: Bladder Cancer GM: Breast Cancer)
Allergies / Home Medications
Allergies reflects when Allergies were last updated in [employer].
Home Medications with original date entered in [employer]
Allergy/Medication List:
Allergies / Home Medications
Allergies
Allergy/AdvReac Type Severity Reaction Status Date / Time
dextrose Allergy Unknown Verified 10/21/24 12:49
nirmatrelvir [From Paxlovid] Allergy Rash Verified 10/21/24 12:49
ritonavir [From Paxlovid] Allergy Rash Verified 10/21/24 12:49
theophylline Allergy Unknown Verified 10/21/24 12:49
Home Medications
�Medication �Instructions �Recorded �Confirmed �Last Taken �Type
aspirin 81 mg tablet,delayed 81 mg PO DAILY Blood Clot 03/27/24 10/21/24 05/21/24 History
release Prevention/Tx
budesonide 160 mcg-glycopyr 9 2 inh inhalation R BID 03/27/24 10/21/24 05/21/24 History
mcg-formot 4.8 mcg/actuation HFA Lung/Breathing Issues
inhaler (Breztri Aerosphere)
albuterol sulfate 2.5 mg/3 mL 2.5 mg inhalation R Q6HPRN PRN sob 05/21/24 10/21/24 05/21/24 History
(0.083 %) solution for nebulization
albuterol sulfate 90 mcg/actuation 2 puff inhalation Q4HPRN PRN 05/21/24 10/21/24 Unknown History
aerosol inhaler shortness of breath
chlorthalidone 25 mg tablet 25 mg PO DAILY Blood Pressure 05/21/24 10/21/24 05/21/24 History
arformoterol 15 mcg/2 mL solution 2 ml inhalation R BID 10/21/24 10/21/24 Unknown History
for nebulization
ascorbic acid (vitamin C) 500 mg 500 mg PO DAILY 10/21/24 10/21/24 Unknown History
tablet (Vitamin C)
budesonide 0.5 mg/2 mL suspension 0.5 mg inhalation R BID 10/21/24 10/21/24 Unknown History
for nebulization
rosuvastatin 20 mg tablet 20 mg PO DAILY 10/21/24 10/21/24 Unknown History
therapeutic multivitamin 1 tab PO DAILY 10/21/24 10/21/24 Unknown History
Review of Systems
-
Hematologic/Lymphatic: Other (All 14 systems reviewed and negative except as stated above in the history of present illness.)
Vitals / Labs / Diagnostic Testing
Vital Signs
Temp Pulse Resp BP Pulse Ox
98.8 F 99 18 107/64 94
10/22/24 07:05 10/22/24 11:08 10/22/24 11:08 10/22/24 08:29 10/22/24 11:08
Lab Data
10/22/24 06:20
10/22/24 06:20
Microbiology
10/21/24 13:06 Nasal Swab Influenza Types A & B (REJI) - Final
Negative for Influenza A & B, NAAT
Negative results must be combined with clinical observations
and patient history.
Nucleic Acid Amplification test (NAAT)performed on the
[employer] platform.
Diagnostic Testing:
Physical Exam
-
HEENT: Normocephalic
Cardiovascular: S1/S2
Respiratory: Wheeze (Bilateral mild diffuse wheezing. Prolonged expiration. AP diameter increased)
GI: Soft and Non Distended
Neurology: Awake
Skin: Warm
General: Comfortable
Assessment
-
#1. Acute on chronic COPD exacerbation, baseline severe obstructive airway disease (FEV1 13% predicted). Unfortunately patient continues to smoke, currently down to 5 cigarettes/day. Reported sick contact exposure recently with increased quantity
and change in color of expectoration likely related to acute viral versus bacterial bronchitis. Influenza A, B screen negative. COVID-19 screen negative. No obvious infiltrate noted on CT chest.
Office spirometry, July/2024. FEV1 0.34 L, 13% of predicted, FVC 1.05 or 32% predicted, FEV1/FVC of 32. Severe obstructive disease.
DLCO in 2023 was only 26% of predicted consistent with severe decrease in diffusion capacity
-DuoNeb 4 times daily scheduled, budesonide nebulized twice a day
-Continue dexamethasone as ordered
-Hold Breztri while patient receiving above medications
-Azithromycin 500 mg daily for 3 days
-O2 support as needed to keep saturations 89% or above
-Patient will resume follow-up with Dr. Gordillo as outpatient. She was taking Breztri and was recently switched to nebulized Brovana, Yupelri and budesonide. Her insurance denied Yupelri. We can consider adding Ensifentrine, this can be discussed
further as outpatient
-Might benefit from Transplant evaluation as out patient. Check Alpha 1 AT. VBG in AM.
#2. Acute on chronic hypoxic respiratory failure. This is related to acute COPD exacerbation
-Refer to above
#3. Ongoing smoking. Unfortunately patient continues to smoke. Currently down to 5 cigarettes/day
-Will continue to counseling center manager regarding smoking cessation considering her severe baseline obstructive airway disease
Patient will resume follow-up with Dr. Gordillo as outpatient
Total time spent on this consultation/encounter 65____ minutes which includes review of history, physical exam, medications, laboratory data, personal review of imaging, extensive review of outpatient records, discussion with care team and
respiratory therapy.
Data:
CT Chest 10/2024: 1. No evidence of pulmonary embolism.
2. Small hiatal hernia. Centrilobular emphysema. Otherwise no significant abnormality identified in the chest, as described above
3. Bilateral upper zone emphysema
ECHO 07/2022: 1. Left ventricle: Normal size and function with an estimated ejection
fraction of 55 to 60%. No regional wall motion abnormalities are noted. Normal
diastolic function.
2. Right ventricle: Normal
3. Atria: Normal
4. Mitral valve: No mitral regurgitation
5. Aortic valve: Trileaflet. No aortic stenosis or aortic insufficiency
6. Tricuspid valve: Trace tricuspid regurgitation. Estimated pulmonary artery
systolic pressures are normal estimated at 18 mmHg.
7. No prior echocardiogram for comparison
[2024-10-22 15:05] VITALS: BP 139/86
[2024-10-22] MEDS: ZITHROMAX 500 MG PO (16:34)
[2024-10-22] MEDS: CRESTOR 20 MG PO (17:19)
[2024-10-22] MEDS: TYLENOL 650 MG PO (17:21)
--- NOTE | 2024-10-22 18:14 | W.PN.HOSP.TC ---
Addendum entered and electronically signed by Gail Espinoza MD 10/22/24 18:34:
I saw and evaluated the patient independently. I reviewed the resident�s note and agree with findings and plan as documented by Dr. De La Rosa.
GENERAL: well developed, well nourished, female in no apparent distress
HEENT: NC/AT--no O2 requirements at time of eval
HEART: regular rate and rhythm, +S1, +S2
LUNGS : decreased breath sounds bilaterally--no wheezing
ABDOM: soft, nontender, nondistended, + bowel sounds
EXT: no cyanosis, clubbing, or edema
NEUROLOGIC: grossly intact
Acute hypoxic respiratory insufficiency-- likely due to acute on chronic COPD exacerbation--88% RA, 96% 2L NC--but improved--cont decadron, wean--consult pulm--apprec input--cont duonebs and MDIs-- Patient was due to Ideabove but her insurance
denied it--no PE by CT, CXR no acute process--add zithromax
Nicotine abuse-- Strongly cessation advised 38-year 1 pack a day and 1 year 1/2 to 1/4 pack a day still smoking
Hypokalemia --likely due to chlorthalidone--replete as needed
Essential HTN-Continue chlorthalidone
HLD--Continue Crestor
DVT proph--SC lovenox
code status--Full code
Original Note:
Today's Communication/Plan
-
- Follow pulmonology
- Continue to monitor oxygen status and slowly wean off oxygen
- Continue on antibiotics
- Check alpha-1 T
- Monitor for any signs of infection like WBC count increasing or fever
Assessment / Plan
Assessment / Plan
Acute hypoxic respiratory insufficiency secondary to acute on chronic COPD exacerbation:
-Most differentiate between cause of infection such as medication nonadherence, pulmonary realism, environmental allergies, genetic causes
- 94% on 2 L oxygen, 88% on room air, keep oxygen between 88-92
- Continue IV Decadron 4 Mg every 12 hours
- Continue DuoNeb 4 times daily and as needed
- Continue budesonide twice daily and ARB for moderate to mL
- Chest CT was negative for pulmonary embolism but did show centrilobular emphysema
- Chest x-ray shows no acute pulmonary process
- Pulmonology was consulted and started her on azithromycin 500 Mg daily for 3 days, will see Dr. Gordillo as outpatient, since insurance denied you tell the read they we will consider adding NS phentermine, checked alpha-1 AT and her doing a VBG in
morning
Nicotine abuse:
- Has been 20 to 35 years 1 pack a day and still is currently smoking
- Advised on smoking cessation
Essential hypertension:
- BP was 139 x 86 and well-controlled
Continue chlorthalidone
Hyperlipidemia:
-Continue atorvastatin 20
DVT prophylaxis subcutaneous Lovenox
Full code
Anticipated Discharge: 24 - 48 hours
Subjective/Interval History
-
Date of Service: October 22, 2024
54-year-old female who has previous medical history of chronic COPD, active smoker, essential hypertension, hyperlipidemia, leukocytosis noticed yesterday that when she took her home pulse ox measurement it was in the 70s and 80s when she is
normally 94%. She noticed dyspnea on exertion with minimal exertion on exercise, cough which was productive. Follows Dr. Gordillo for pulmonology. Takes budesonide twice a day along with albuterol inhaler, R4 Martorano, with Jakytri which was
denied by her insurance. Currently does not work and has no source of income.
Objective Data
-
Labs:
Laboratory Results
10/22/24
06:20
WBC 10.5
Hgb 15.0
Hct 43.4
Plt Count 307
Sodium 141
Potassium 4.0
Chloride 103
Carbon Dioxide 30
BUN 20 H
Creatinine 0.5 L
Glucose 129 H
Calcium 9.9
Total Bilirubin 0.4
AST 19
ALT 18
Alkaline Phosphatase 115
Vital Signs:
Vital Signs
Temp Pulse Resp BP Pulse Ox
99.1 F 93 19 139/86 95
10/22/24 15:05 10/22/24 15:05 10/22/24 15:05 10/22/24 15:05 10/22/24 15:05
I&O
10/21/24 10/22/24 10/23/24
06:59 06:59 06:59
Intake Total 480 / 480
Balance 480 / 480
Review of Systems
-
History Source: Patient
Constitutional: Denies Fever, Weight Loss or Chills
Respiratory: Reports Trouble Breathing; Denies Cough, Hemoptysis or Wheezing
Cardiac: Denies Chest Pain, Palpitations or Syncope
Abdomen/GI: Denies Abdominal Pain, Nausea or Vomiting
Skin: Denies Itching or Rash
Neuro: Denies Headache or Weakness
Hematologic / Lymphatic: Denies Bleeding
Physical Exam
-
Respiratory: Wheezes (Bilateral lower lobe expiratory wheeze)
Cardiac: Regular Rhythm and S1/S2
GI: Nontender, Nondistended and Normal Bowel Sounds
Data Reviewed
-
CT Scan: Image personally visualized and interpreted and Discussed with Physician
Labs: Labs Reviewed by me and Discussed with Physician
[2024-10-22 22:58] VITALS: BP 111/59
[2024-10-23] MEDS: DECADRON 4 MG IV (03:52)
[2024-10-23 06:39] LABS: % Basophils 0.1 % (0-2); % Eosinophils 0.1 % (0-6); % Immature Granulocytes 0.6 % (0-0.5); % Lymphocytes 8.9 % (20.5-51.1); % Monocytes 2.9 % (1.7-9.3); % Neutrophils 87.4 % (42.2-75.2); Absolute Immature Granulocytes 0.1 10^3/uL (0-0.05); Absolute Lymphocytes 1.3 10^3/uL (1.2-3.4); Absolute Monocytes 0.4 10^3/uL (0.1-0.6); Absolute Neutrophils 12.7 10^3/uL (1.4-6.5); Hematocrit 41.9 % (37.0-47.0); Hemoglobin 14.2 g/dL (12.0-16.0); Mean Corp Hgb Conc. 33.9 g/dL (33.0-37.0); Mean Corpuscular Hgb 29.3 pg (27.0-31.0); Mean Corpuscular Volume 86.4 fL (81.0-99.0); Mean Platelet Volume 10.1 fL (7.4-10.4); Nucleated Red Blood Cells % 0 %; Platelet Count 295 10^3/uL (130-400); Red Blood Cell Count 4.85 10^6/uL (4.20-5.40); Red Cell Dist. Width 13.6 % (11.5-14.5); White Blood Cell Count 14.5 10^3/uL (4.8-10.8)
[2024-10-23 06:41] LABS: Venous Blood Gas B.E. 7.6 mmol/L (-4 to +4); Venous Blood Gas HCO3 32.7 mmol/L (22-27); Venous Blood Gas O2 Sat % 99.5 %; Venous Blood Gas pCO2 46 mmHg (35-48); Venous Blood Gas pH 7.46 (7.32-7.43); Venous Blood Gas pO2 196 mmHg (30-50)
[2024-10-23 06:59] LABS: ALT (SGPT) 16 U/L (0-35); AST (SGOT) 19 U/L (14-36); Albumin 3.6 g/dl (3.5-5.0); Alkaline Phosphatase 94 U/L (38-126); Blood Urea Nitrogen 17 mg/dl (7-17); Calcium 9.7 mg/dl (8.4-10.2); Carbon Dioxide 30 mmol/L (22-30); Chloride 107 mmol/L (98-107); Estimated Creatinine Clearance 82 ml/min; Glucose 139 mg/dl (70-99); Potassium 4.1 mmol/L (3.5-5.1); Sodium 140 mmol/L (135-145); Total Bilirubin 0.4 mg/dl (0.2-1.3); Total Protein 5.9 g/dl (6.3-8.2); eGFR > 60.00
[2024-10-23] MEDS: DUONEB 3 ML INH ×2 (07:38→11:20)
[2024-10-23] MEDS: PULMICORT 0.5 MG INH (07:38)
[2024-10-23] MEDS: Hygroton 25 MG PO (08:06)
[2024-10-23] MEDS: THERAGRAN 1 TABLET PO (08:06)
[2024-10-23] MEDS: ASPIR LOW (ENTERIC COATED) 81 MG PO (08:06)
[2024-10-23] MEDS: ZITHROMAX 500 MG PO (08:06)
[2024-10-23] MEDS: VITAMIN C 500 MG PO (08:06)
[2024-10-23 08:11] VITALS: BP 116/68
[2024-10-23] MEDS: TYLENOL 650 MG PO (09:55)
--- NOTE | 2024-10-23 11:27 | W.PN.HOSP.TC ---
Addendum entered and electronically signed by Gail Espinoza MD 10/23/24 17:35:
I saw and evaluated the patient independently. I reviewed the resident�s note and agree with findings and plan as documented by Dr. De La Rosa.
GENERAL: well developed, well nourished, female in no apparent distress
HEENT: NC/AT--no O2 requirements at time of eval
HEART: regular rate and rhythm, +S1, +S2
LUNGS : decreased breath sounds bilaterally--no wheezing
ABDOM: soft, nontender, nondistended, + bowel sounds
EXT: no cyanosis, clubbing, or edema
NEUROLOGIC: grossly intact
Acute hypoxic respiratory insufficiency-- likely due to acute on chronic COPD exacerbation--88% RA, 96% 2L NC--but improved, no O2 requirements on home O2 assessment--cont decadron, wean--apprec pulm--cont duonebs and MDIs-- Patient was due to get
Kanika but her insurance denied it--no PE by CT, CXR no acute process--add zithromax and transition to oral steroids
Nicotine abuse-- Strongly cessation advised 37-year 1 pack a day and 1 year 1/2 to 1/4 pack a day still smoking
Hypokalemia --likely due to chlorthalidone--replete as needed
Essential HTN-Continue chlorthalidone
HLD--Continue Crestor
DVT proph--SC lovenox
code status--Full code
Original Note:
Today's Communication/Plan
-
- Patient discharged home today
- Follow pulmonary outpatient
Assessment / Plan
Assessment / Plan
Patient is planning on being discharged today with her nephew.
Acute hypoxic respiratory insufficiency secondary to acute on chronic COPD exacerbation:
-Most differentiate between cause of infection such as medication nonadherence, pulmonary realism, environmental allergies, genetic causes
- 94% on 2 L oxygen, 88% on room air, keep oxygen between 88-92
- Continue IV Decadron 4 Mg every 12 hours
- Continue DuoNeb 4 times daily and as needed
- Continue budesonide twice daily and ARB for moderate to mL
- Chest CT was negative for pulmonary embolism but did show centrilobular emphysema
- Chest x-ray shows no acute pulmonary process
- VBG resulted
- Continue remaining dose of Azithromycin outpatient
- Continue on home dose budesonide, aformeterol. Spiriva will replace Breztri. Prednisone 30 mg for 3 more days.
- Pulmonology follwing
- Assess for home oxygen need prior to discharge
Leucocytosis:
- 14.5 most likely reactive due to recent steroid usage
- No fever, elevated wbc count
Nicotine abuse:
- Has been 20 to 35 years 1 pack a day and still is currently smoking
- Advised on smoking cessation
Essential hypertension:
- BP was 139 x 86 and well-controlled
Continue chlorthalidone
Hyperlipidemia:
-Continue atorvastatin 20
DVT prophylaxis subcutaneous Lovenox
Full code
Anticipated Discharge: Today
Subjective/Interval History
-
Date of Service: October 23, 2024
54-year-old female who has previous medical history of chronic COPD, active smoker, essential hypertension, hyperlipidemia, leukocytosis noticed yesterday that when she took her home pulse ox measurement it was in the 70s and 80s when she is
normally 94%. She noticed dyspnea on exertion with minimal exertion on exercise, cough which was productive. Follows Dr. Gordillo for pulmonology. Takes budesonide twice a day along with albuterol inhaler, R4 Martorano, with Breztri which was
denied by her insurance. Currently does not work and has no source of income.
Objective Data
-
Labs:
Laboratory Results
10/23/24
06:11
WBC 14.5 H
Hgb 14.2
Hct 41.9
Plt Count 295
Sodium 140
Potassium 4.1
Chloride 107
Carbon Dioxide 30
BUN 17
Creatinine 0.4 L
Glucose 139 H
Calcium 9.7
Total Bilirubin 0.4
AST 19
ALT 16
Alkaline Phosphatase 94
Vital Signs:
Vital Signs
Temp Pulse Resp BP Pulse Ox
98.1 F 102 16 116/68 94
10/23/24 08:36 10/23/24 11:21 10/23/24 11:21 10/23/24 08:11 10/23/24 11:21
I&O
10/22/24 10/23/24 10/24/24
06:59 06:59 06:59
Intake Total 480 / 480 1680 / 1680
Balance 480 / 480 1680 / 1680
Review of Systems
-
History Source: Patient
Constitutional: Denies Fever, Weight Loss or Chills
Respiratory: Reports Trouble Breathing; Denies Cough, Hemoptysis or Wheezing
Cardiac: Denies Chest Pain, Palpitations or Syncope
Abdomen/GI: Denies Abdominal Pain, Nausea or Vomiting
Skin: Denies Itching or Rash
Neuro: Denies Headache or Weakness
Hematologic / Lymphatic: Denies Bleeding
Physical Exam
-
Respiratory: Decreased Breath Sounds (Bilaterally)
Cardiac: Regular Rhythm and S1/S2
GI: Nontender, Nondistended and Normal Bowel Sounds
Neuro: Awake, Alert, Oriented and AO x 3
Psych: Calm
Data Reviewed
-
CT Scan: Image personally visualized and interpreted and Discussed with Physician
Labs: Labs Reviewed by me and Discussed with Physician
--- NOTE | 2024-10-23 11:54 | W.PN.PUL3 ---
Today's Communication / Plan
-
-Patient stable for discharge from pulmonary standpoint
-Continue a formoterol and budesonide nebulized twice a day at home
-Considering Yupelri is not covered by insurance, start patient on Spiriva at discharge
-Discontinue Breztri
-Recommend prednisone 30 mg daily for 3 more dosages and then stop
-Continue azithromycin 500 mg daily for a total of 3 days
-Outpatient follow-up with Dr. Gordillo as scheduled
Assessment
-
Patient is a very pleasant 54-year-old female with severe underlying COPD/emphysema, on triple therapy with LAMA/LABA/ICS, presents to the hospital with increasing dyspnea, increasing cough with expectoration as well as hypoxia. Patient reports
that her family members had supposed allergy last week but now she thinks they might have some upper respiratory viral infection. Over the last few days she started having increased cough, with increased sputum production, also the color of sputum
started to turn more dark and greenish. She has been on Breztri in the past and was recently switched to 2 budesonide, Brovana as well as Yupelri. However Yupelri was denied by her insurance.
Workup in the emergency room included a CT scan which was negative for any pulmonary embolism. In view of her severe underlying COPD and worsening symptoms with hypoxia, pulmonary consultation was requested for further input.
#1. Acute on chronic COPD exacerbation, baseline severe obstructive airway disease (FEV1 13% predicted). Unfortunately patient continues to smoke, currently down to 5 cigarettes/day. Reported sick contact exposure recently with increased quantity
and change in color of expectoration likely related to acute viral versus bacterial bronchitis. Influenza A, B screen negative. COVID-19 screen negative. No obvious infiltrate noted on CT chest.
Office spirometry, July/2024. FEV1 0.34 L, 13% of predicted, FVC 1.05 or 32% predicted, FEV1/FVC of 32. Severe obstructive disease.
DLCO in 2023 was only 26% of predicted consistent with severe decrease in diffusion capacity
-Has been on DuoNeb 4 times daily scheduled, budesonide nebulized twice a day
-Prednisone 30 daily
-Hold Breztri while patient receiving above medications
-Azithromycin 500 mg daily for 3 days
-O2 support as needed to keep saturations 89% or above
-Patient will resume follow-up with Dr. Gordillo as outpatient. She was taking Breztri and was recently switched to nebulized Brovana, Yupelri and budesonide. Her insurance denied Yupelri. We can consider adding Ensifentrine, this can be discussed
further as outpatient
-Might benefit from Transplant evaluation as out patient. Await Alpha 1 AT. VBG today, 7.46, pCO2 46. Does not qualify for home noninvasive positive pressure ventilation
#2. Acute on chronic hypoxic respiratory failure. This is related to acute COPD exacerbation
-Refer to above
#3. Ongoing smoking. Unfortunately patient continues to smoke. Currently down to 5 cigarettes/day
-Will continue to student counsellor regarding smoking cessation considering her severe baseline obstructive airway disease
-We discussed regarding lung transplant considering she is 54 and has severe obstructive airway disease. We also discussed smoking being a barrier when considering lung transplant.
Patient will resume follow-up with Dr. Gordillo as outpatient
Total time spent on this consultation/encounter 45____ minutes which includes review of history, physical exam, medications, laboratory data, personal review of imaging, extensive review of outpatient records, discussion with care team and
respiratory therapy.
Data:
CT Chest 10/2024: 1. No evidence of pulmonary embolism.
2. Small hiatal hernia. Centrilobular emphysema. Otherwise no significant abnormality identified in the chest, as described above
3. Bilateral upper zone emphysema
ECHO 07/2022: 1. Left ventricle: Normal size and function with an estimated ejection
fraction of 55 to 60%. No regional wall motion abnormalities are noted. Normal
diastolic function.
2. Right ventricle: Normal
3. Atria: Normal
4. Mitral valve: No mitral regurgitation
5. Aortic valve: Trileaflet. No aortic stenosis or aortic insufficiency
6. Tricuspid valve: Trace tricuspid regurgitation. Estimated pulmonary artery
systolic pressures are normal estimated at 18 mmHg.
7. No prior echocardiogram for comparison
Subjective Data
-
Date of Service:
Date of Service: October 23, 2024
Subjective:
Patient comfortably sitting in bed, no new complaints. Feels at her baseline.
Review of Systems
Genitourinary: Other (All 14 systems reviewed and negative except as stated above in the history of present illness.)
Objective Data
Data Reviewed
Vital Signs / I&O / Oxygen:
Vital Signs
Temp Pulse Resp BP Pulse Ox
98.1 F 102 16 116/68 94
10/23/24 08:36 10/23/24 11:21 10/23/24 11:21 10/23/24 08:11 10/23/24 11:21
Intake and Output
10/22/24 10/23/24 10/24/24
06:59 06:59 06:59
Intake Total 480 / 480 1680 / 1680
Balance 480 / 480 1680 / 1680
SaO2 94
Nasal Cannula flow liters per 2
minute
Physical Exam
General: Comfortable
HEENT: Normocephalic
Cardiovascular: S1-S2
Respiratory: Wheeze (No wheezing on exam today. Expiration prolonged.)
GI: Soft and Non Distended
Neurology: Awake and Alert
Skin: Warm
Labs/Micro/Reports
Lab Data
10/23/24 06:11
10/23/24 06:11
Microbiology
10/21/24 13:06 Nasal Swab Influenza Types A & B (REJI) - Final
Negative for Influenza A & B, NAAT
Negative results must be combined with clinical observations
and patient history.
Nucleic Acid Amplification test (NAAT)performed on the
[employer] platform.
[2024-10-23] MEDS: DELTASONE 30 MG PO (12:14)
--- NOTE | 2024-10-23 14:33 | CM ---
Patient seen at bedside with physician. Patient plan is for discharge home with follow up with pulmonology and no home O2 needs. Patient lives with family, Dr. Vela is the family doctor, and she uses the [email or web address] in [place]. Patient would
also take transportation home with family. CM will continue to follow for discharge planning needs.
Plan; home with no needs.
--- NOTE | 2024-10-23 17:39 | W.DCSUMMARY ---
Addendum entered and electronically signed by Gail Espinoza MD 10/23/24 18:40:
Read, reviewed, and agree. See same day progress note for additional details. Time spent coordinating care, DC planning, review of DC plan of care with resident, transition of care, review of records in EMR, med rec, consults, notes, d/w
consultants, nursing, family, and CM = 35 minutes
Patient did have an assessment for home oxygen. She did not require oxygen at discharge.
Original Note:
Discharge Summary
Discharge Data
Date of Admission: 10/21/24
Date of Discharge: 10/23/24
-
Pending Results: Yes (Alpha 1 Antitrypsin)
Hospital Course
Discharging Physician : Dr. Gail Espinoza and Dr. Guero De La Rosa
Disposition : Home
,
Primary care physician : Dr. Romie Vela
Principal Discharge diagnosis : Acute hypoxic respiratory insufficiency secondary to acute on chronic COPD exacerbation
Chronic Discharge diagnosis : Leukocytosis, nicotine abuse, essential hypertension, hyperlipidemia
Hospital Course : 54-year-old female full code with a past medical history of nicotine abuse, hypertension, lipidemia. She noticed that her pulse ox measurement was in the 70s and 80s when she is normally 94% on room air. She noticed dyspnea on
exertion with minimal exertion on exercise and productive cough. She follows Dr. Horowitz for pulmonology. Takes budesonide twice a day along with her albuterol inhalor, arformoterol, and Brezti which was denied by her insurance.
When she presented to the ED, her WBC was 11.4, hemoglobin 15.7, potassium 3.2, sodium 142, glucose 130, calcium 10.4 temperature is 98.3 by 88% on room air, 96% on 2 L nasal cannula. In addition to IV Decadron for. CTA of the chest showed
evidence of pulmonary embolism centrilobular emphysema. Chest x-ray showed no acute cardiopulmonary process. She has been smoking cigarettes for 37 years 1 pack a day and is still smoking. EKG showed sinus rhythm with sinus arrhythmia 96 bpm QTc
464. Continue Crestor for hyperlipidemia and chlorthalidone for hypertension and replete her potassium. Pulmonology was consulted and saw the patient and recommended to continue her DuoNebs and dexamethasone while also administering azithromycin
500 mg daily for 3 days, oxygen support, check alpha-1 antitrypsin which is still pending and venous blood gas. Patient did not experience any pain, palpitations, paroxysmal nocturnal dyspnea, swelling during the course of her hospital stay.
However she has had decreased breath sounds hospital stay which probably due to the severe COPD. On discharge she is stable with 88% room air, 96% 2 L nasal cannula no oxygen requirements on evaluation on home oxygen assessment and extra medication
on discharge with prednisone 30 Mg daily for 3 more days, azithromycin for 1 more day, and follow Dr. Horowitz for outpatient pulmonary visit. Vitals were stable and patient was afebrile. Please see PCP in 1 week with repeat BMP and CMP.
Alpha-1 antitrypsin is still pending
Patient was advised on smoking cessation.
Continue chlorthalidone outpatient for essential hypertension
Continue Crestor outpatient for hyperlipidemia
Important imaging findings :
Chest CT:
IMPRESSION:
1. No evidence of pulmonary embolism.
2. Small hiatal hernia. Centrilobular emphysema. Otherwise no significant abnormality identified in the chest, as described above.
Procedure findings :
Discharge Plan
-
Patient Disposition: Home (Routine Discharge)
Discharge Diagnosis/Procedures: Acute Hypoxemic respiratory insufficiency secondary to acute on chronic COPD, nicotine abuse, Essential Hypertension, Hyperlipidemia
Condition: Good
Diet: Regular
Activity: As tolerated
Driving Restrictions: Not until seen by your Dr
Bathing Restrictions: None
Blood Work: CMP in 1 week with PCP
CBC in 1 week with PCP
Referrals:
Zac Ruiz MD [Active] - (Patient already scheduled for follow up )
Romie Vela MD [Family Provider] - in less than 1 week
Additional Discharge Medication Instructions: Continue home dose of Aformetrol
Continue Budesonide twice a day
Start on Spiriva
Do not take Breztri as it is discontinued
Prednisone 30 mg daily for 3 more days
Azithromycin remaining doses
Prescriptions:
New
azithromycin 250 mg Tablet
500 mg PO DAILY Qty: 1 0RF
prednisone 10 mg tablet
30 mg PO DAILY Qty: 9 0RF
Spiriva Respimat 2.5 mcg/actuation mist
2 puff inhalation DAILY Qty: 4 0RF
Continued
aspirin 81 mg Tablet,Delayed Release (Dr/Ec)
81 mg PO DAILY
chlorthalidone 25 mg tablet
25 mg PO DAILY
albuterol sulfate 2.5 mg /3 mL (0.083 %) solution for nebulization
2.5 mg inhalation R Q6HPRN PRN (Reason: sob)
albuterol sulfate 90 mcg/actuation Hfa Aerosol Inhaler
2 puff INHALATION Q4HPRN PRN (Reason: shortness of breath )
therapeutic multivitamin Tablet
1 tab PO DAILY Qty: 0 0RF
ascorbic acid (vitamin C) [Vitamin C] 500 mg Tablet
500 mg PO DAILY Qty: 0 0RF
budesonide 0.5 mg/2 mL Suspension For Nebulization
0.5 mg INHALATION R BID Qty: 0 0RF
rosuvastatin 20 mg Tablet
20 mg PO DAILY Qty: 0 0RF
arformoterol 15 mcg/2 mL Solution For Nebulization
2 ml INHALATION R BID Qty: 0 0RF
Discontinued
Breztri Aerosphere 160-9-4.8 mcg/actuation Hfa Aerosol Inhaler
2 inh INHALATION R BID
Discharge Orders:
Discharge Patient (As Directed); Ordered 10/23/24
Ordered By: Gali Espinoza
Discharge Date and Time
Discharge Date/Time: 10/23/24 15:54
Print Language: PALESTINIAN
[2024-10-24 22:09] LABS: Alpha-1-Antitrypsin 169 mg/dL (90-200)
== END 2024-10-23 15:54 | disposition home or self-care (01) | DRG 192 ==
LOC: 3 WEST ACU 20:13
PROVIDERS: Clinical Nurse Specialist Family Health; Emergency Medicine; Physician Assistant; ADMITTING PHYSICIAN Hospitalist; ATTENDING PHYSICIAN Internal Medicine; CONSULT PHYSICIAN Internal Medicine; EMERGENCY PHYSICIAN Student in an Organized Health Care Education/Training Program; FAMILY PHYSICIAN Family Medicine
DX: J44.1 Chronic obstructive pulmonary disease with (acute) exacerbation (principal); R09.02 Hypoxemia; F17.210 Nicotine dependence, cigarettes, uncomplicated; E78.5 Hyperlipidemia, unspecified; I10 Essential (primary) hypertension; Z71.6 Tobacco abuse counseling; K44.9 Diaphragmatic hernia without obstruction or gangrene; J43.2 Centrilobular emphysema; Z79.82 Long term (current) use of aspirin; Z79.899 Other long term (current) drug therapy; E87.6 Hypokalemia; Z11.52 Encounter for screening for COVID-19; Z56.0 Unemployment, unspecified
CPT/HCPCS: 71046; 71275; 80053; 82103; 82805; 83735; 83880; 84484; 85025; 87502; 87811; 93005; 94640; 96374; 99285; Q9967

== ENCOUNTER 2025-01-02 06:15 | Inpatient (IN) | payer BC, SELFPAY ==
[2025-01-02] VITALS (10 sets, daily range): BP systolic 101–129; BP diastolic 56–86
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
[2025-01-02 02:43] LABS: % Basophils 0.6 % (0-2); % Eosinophils 1.5 % (0-6); % Immature Granulocytes 0.3 % (0-0.5); % Lymphocytes 23.2 % (20.5-51.1); % Monocytes 5.5 % (1.7-9.3); % Neutrophils 68.9 % (42.2-75.2); Absolute Basophils 0.1 10^3/uL (0-0.2); Absolute Eosinophils 0.2 10^3/uL (0-0.7); Absolute Lymphocytes 3.4 10^3/uL (1.2-3.4); Absolute Monocytes 0.8 10^3/uL (0.1-0.6); Absolute Neutrophils 9.9 10^3/uL (1.4-6.5); Hematocrit 46.8 % (37.0-47.0); Mean Corp Hgb Conc. 34.2 g/dL (33.0-37.0); Mean Corpuscular Hgb 29.6 pg (27.0-31.0); Mean Corpuscular Volume 86.7 fL (81.0-99.0); Mean Platelet Volume 9.4 fL (7.4-10.4); Nucleated Red Blood Cells % 0 %; Platelet Count 367 10^3/uL (130-400); Red Cell Dist. Width 13.9 % (11.5-14.5); White Blood Cell Count 14.4 10^3/uL (4.8-10.8)
[2025-01-02] MEDS: DUONEB 3 ML INH ×7 (02:45→20:32)
[2025-01-02 03:00] LABS: COVID-19 Antigen Negative (Negative)
[2025-01-02 03:07] LABS: ALT (SGPT) 19 U/L (0-35); AST (SGOT) 20 U/L (14-36); Albumin 4.7 g/dl (3.5-5.0); Alkaline Phosphatase 103 U/L (38-126); Blood Urea Nitrogen 15 mg/dl (7-17); Calcium 10.2 mg/dl (8.4-10.2); Carbon Dioxide 33 mmol/L (22-30); Chloride 101 mmol/L (98-107); Glucose 131 mg/dl (70-99); Potassium 3.3 mmol/L (3.5-5.1); Sodium 142 mmol/L (135-145); Total Bilirubin 0.7 mg/dl (0.2-1.3); eGFR > 60.00
[2025-01-02 03:18] LABS: Troponin I < 0.012 ng/ml
[2025-01-02 03:25] LABS: D-Dimer < 0.27 ug/mlFEU (0.00-0.50)
[2025-01-02] MEDS: KCL ELIXIR 40 MEQ PO (03:54)
[2025-01-02] MEDS: DECADRON 10 MG IV (03:54)
[2025-01-02] MEDS: NSS 500 IV (03:55)
[2025-01-02] MEDS: ZITHROMAX INFUSION 250 IV (05:16)
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
[2025-01-02] MEDS: TYLENOL 650 MG PO ×2 (06:33→14:44)
--- NOTE | 2025-01-02 07:15 | PTCARENOTE ---
01/02- Patient transferred and oriented to unit without issue. AAOX3 but very tired. Steady gait with Full ROM but weak due to RAMACHANDRAN. Pt is 95% on RA at rest. She only wears O2 while sleeping, but she states she hasn't slept all night and would
like to sleep a bit now. Given she's going to settle into her room and sleep, applied 2L O2. 97% POX on 2L. Advised she will take her AM meds when she awakes. She denies any other needs or requests at this time.
[2025-01-02] MEDS: PULMICORT 0.5 MG INH ×2 (07:56→20:32)
[2025-01-02] MEDS: VENTOLIN NEBULES 2.5 MG INH ×2 (07:57→11:30)
[2025-01-02] MEDS: CRESTOR 20 MG PO (10:33)
[2025-01-02] MEDS: ASPIR LOW (ENTERIC COATED) 81 MG PO (10:33)
[2025-01-02] MEDS: Hygroton 25 MG PO (10:34)
[2025-01-02] MEDS: STERILE WATER FOR INJECTION 10 ML IV (10:34)
[2025-01-02] MEDS: ROCEPHIN 1000 MG IV (10:34)
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
[2025-01-02] MEDS: DELTASONE 40 MG PO (14:43)
[2025-01-02] MEDS: VENTOLIN NEBULES INH ×2 (15:07→20:15)
[2025-01-02] MEDS: LOVENOX 40 MG SC (18:11)
[2025-01-03] MEDS: DUONEB 3 ML INH ×3 (07:26→15:45)
[2025-01-03] MEDS: PULMICORT 0.5 MG INH (07:26)
[2025-01-03 07:56] VITALS: BP 108/62
[2025-01-03] MEDS: CRESTOR 20 MG PO (08:00)
[2025-01-03] MEDS: ASPIR LOW (ENTERIC COATED) 81 MG PO (08:00)
[2025-01-03] MEDS: Hygroton 25 MG PO (08:00)
[2025-01-03] MEDS: DELTASONE 40 MG PO (08:00)
[2025-01-03] MEDS: ZITHROMAX 500 MG PO (08:00)
[2025-01-03 09:12] LABS: Hematocrit 38.9 % (37.0-47.0); Hemoglobin 13.4 g/dL (12.0-16.0); Mean Corp Hgb Conc. 34.4 g/dL (33.0-37.0); Mean Corpuscular Hgb 29.7 pg (27.0-31.0); Mean Corpuscular Volume 86.3 fL (81.0-99.0); Mean Platelet Volume 9.5 fL (7.4-10.4); Platelet Count 345 10^3/uL (130-400); Red Blood Cell Count 4.51 10^6/uL (4.20-5.40); Red Cell Dist. Width 13.6 % (11.5-14.5); White Blood Cell Count 14.6 10^3/uL (4.8-10.8)
[2025-01-03 09:44] LABS: Blood Urea Nitrogen 14 mg/dl (7-17); Calcium 9.8 mg/dl (8.4-10.2); Carbon Dioxide 29 mmol/L (22-30); Chloride 105 mmol/L (98-107); Glucose 115 mg/dl (70-99); Potassium 3.6 mmol/L (3.5-5.1); Sodium 140 mmol/L (135-145); eGFR > 60.00
[2025-01-03] MEDS: ROCEPHIN 1000 MG IV (10:10)
[2025-01-03] MEDS: STERILE WATER FOR INJECTION 10 ML IV (10:10)
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
[2025-01-03 15:34] VITALS: BP 124/66
== END 2025-01-03 17:00 | disposition home or self-care (01) | DRG 191 ==
LOC: 4 WEST ACU 06:15
PROVIDERS: Physician Assistant; ADMITTING PHYSICIAN Internal Medicine; ATTENDING PHYSICIAN Hospitalist; EMERGENCY PHYSICIAN Student in an Organized Health Care Education/Training Program; FAMILY PHYSICIAN Family Medicine
DX: J44.1 Chronic obstructive pulmonary disease with (acute) exacerbation (principal); J96.11 Chronic respiratory failure with hypoxia; Z11.52 Encounter for screening for COVID-19; F17.210 Nicotine dependence, cigarettes, uncomplicated; I10 Essential (primary) hypertension; Z79.899 Other long term (current) drug therapy
CPT/HCPCS: 71046; 80048; 80053; 84484; 85025; 85027; 85379; 87502; 87811; 93005; 94640; 96365; 96375; 99285